=== PATIENT | female | born 2000 | race African-American/Black ===

== ENCOUNTER 2023-05-07 11:16 | Observation (INO) ==
--- NOTE | 2023-05-07 11:32 | Emergency Department Note ---
Impression & Plan Hypoglycemia, Diabetes type 1, uncontrolled, Intentional overdose, Hypokalemia ED Provider Note NAME: HENNY KEENAN AGE: 22 SEX: F : 2000 ARRIVES VIA: Ambulance INFORMANT: Patient ED PROVIDER(S): Binh Ann DO CHIEF COMPLAINT: OVERDOSE HPI: Patient is a 22-year-old female with a past medical history of diabetes, depression, hypothyroidism who presents to the ER following a suicide attempt. She notes this morning she received an email from her professor that she was not going to pass her class and consequently was not going to graduate. She notes around 1045 she took 40 units of Humalog subcu in order to kill herself. She did not check her sugars. She notes last night she took her 40 units of Lantus. She denies any headache or change in vision. No chest pain or shortness of breath. She did not eat prior to this. Denies any belly pain, nausea, vomiting, or diarrhea. No dysuria, urgency, or frequency. No other exacerbating remitting factors. ADDITIONAL HISTORY OBTAINED: Per HPI Chronic Medical/Social Conditions Affecting Care: Per HPI PAST MEDICAL HISTORY:See Below PAST SURGICAL HISTORY:See Below FAMILY HISTORY:See Below SOCIAL HISTORY:See Below HOME MEDICATIONS:See Below ALLERGIES:See Below VITALS:See Below PHYSICAL EXAMINATION: GENERAL: Sitting up in bed, alert, well appearing, well nourished, no distress, non-toxic EYE EXAM: normal conjunctiva. PERRL and EOM's grossly intact. OROPHARYNX: no exudate, no erythema, lips, buccal mucosa, and tongue normal and mucous membranes are moist NECK: supple, no nuchal rigidity, no adenopathy, non-tender LUNGS: Clear to auscultation. Normal chest wall mechanics HEART: no murmurs, S1 normal and S2 normal ABDOMEN: abdomen soft, non-tender, normo-active bowel sounds, no masses, no rebound or guarding. BACK: Back is symmetrical on inspection and there is no deformity, no midline tenderness, no CVA tenderness. SKIN: no rashes and no bruising UPPER EXTREMITIES: upper extremities are grossly normal. LOWER EXTREMITIES: No pitting edema. NEURO EXAM: Normal sensorium, cranial nerves II-XII grossly intact, normal speech, no gross weakness of arms, no gross weakness of legs. PSYCH: Admits to suicidal ideations with attempt to kill self MEDICAL DECISION MAKING: Patient is a 22-year-old female who presents the ER with past medical history of diabetes and hypothyroidism for intentional overdose on Humalog 40 units just prior to arrival. IV was established blood work is obtained. Labs show no significant leukocytosis or anemia. BMP with mild hypokalemia at 3.0. Glucose was 300 just prior to arrival and trended down to 50. She was given half an amp with D50 and placed on D10 normal saline. UA was contaminated. Patient was monitored closely and sugars trended back up. She did also eat. She was discussed with the hospitalist as well as [place] poison control and was admitted for close monitoring. Potassium was repleted orally as well. Patient remained on a one-to-one while in the ER. Consults/Care Managements Discussions: Per [facility] [place] Triage Nursing notes reviewed. Limited review of prior medical records performed Vital Signs: reviewed and remarkable for no significant abnormalities Differential diagnosis: Mood disorder, infection, hypoglycemia, electrolyte abnormalities, cardiac sources, intracerebral event, toxicologic, trauma, neurologic, as well as other pathologies. ER treatment provided: See below Diagnostics interpreted by me include EKG and cardiac monitoring as listed below: -Cardiac Monitoring: An order was placed for continuous cardiac monitoring. The monitor shows a rate of 80 with sinus rhythm. -ECG: Sinus rhythm rate 75 Normal axis No PVCs QTc 428 -Laboratory studies:Interpreted by me as stated above in MDM and shown below. Imaging studies: Xrays: As interpreted by me:none CTs show: none Procedures:none Critical Care: I have personally spent 31 minutes of critical care time in the direct management of this patient. This includes bedside care, interpretation of diagnostic studies, and testing, discussion with consultants, patient, and family members, and other required patient management activities. This 31 minutes is in excess of all separately billable procedures. Past Med/Surg History Medical History Diabetes type 1, uncontrolled Hypothyroidism Vitamin D deficiency Family History Denies family history of Diabetes Dyslipidemia Heart disease Kidney disease Myocardial infarction Hypertension Thyroid disorder Social History Smoking Status: Current some day smoker Tobacco Type: E-cigarettes / Vaping Do You Dip or Chew Tobacco: No; Hx Alcohol Use: Yes Alcohol Intake Frequency: Monthly or Less Hx Substance Use: No Preferred Language: Sri Lankan marital status: Single current occupational status: student Feels Safe at Home: Yes Allergies Allergies Allergy/AdvReac Type Severity Reaction Status Date / Time No Known Drug Allergies Allergy Verified 01/31/21 14:51 Home Meds Home Medications Medication Instructions Recorded Confirmed blood sugar diagnostic (Contour 12/22/20 01/31/21 Next Test Strips) cholecalciferol (vitamin D3) 0 ea PO DAILY 12/22/20 05/07/23 glucagon 3 mg/actuation nasal 0 mg intranasal ONCE 05/07/23 05/07/23 spray (Baqsimi) insulin glargine 100 unit/mL (3 40 unit subcut HS 05/07/23 05/07/23 mL) subcutaneous pen (Lantus Solostar U-100 Insulin) insulin lispro 100 unit/mL 20 unit subcut TID 05/07/23 05/07/23 subcutaneous pen (Humalog KwikPen (U-100) Insulin) Previous Rx's Medication Instructions Recorded levothyroxine 50 mcg tablet 50 mcg PO DAILY #30 tabs 12/22/20 pen needle, diabetic 32 gauge x #400 ea 12/22/20" (BD Ultra-Fine Olya Pen Needle) Results & Data (ED) Vital Signs Vital Signs - 24 hr 05/07/23 11:22 05/07/23 11:22 05/07/23 11:28 Pulse Rate 75 85 Respiratory Rate 12 Respiratory Depth Normal Blood Pressure 148/74 H Blood Pressure Mean 98 Pulse Oximetry 98 98 Oxygen Delivery Method Room Air Room Air Oxygen Flow Rate 0 Sepsis Recent Fever Within 48 Hours No Sepsis New/Unexplained Change in Mental Status N/A Sepsis Action Taken by Nursing No Action Required Laboratory Data 05/07/23 12:34 05/07/23 11:45 Lab Results 05/07/23 05/07/23 05/07/23 Range/Units 11:24 11:45 11:56 WBC (4.8-10.8) K/ul RBC (4.20-5.40) M/uL Hgb (12.0-16.0) g/dl Hct (37.0-47.0) % MCV (80.0-100.0) fL MCH (25.0-34.0) pg MCHC (32.0-36.0) g/dL RDW Std Deviation (36.4-46.3) fL RDW Coeff of Mirta (11.5-14.5) % Plt Count (130-400) K/uL MPV (9.4-12.4) fL Immature Gran % (Auto) % Neut % (Auto) % Lymph % (Auto) % [place] % (Auto) % Eos % (Auto) % Baso % (Auto) % Neut # (Auto) (1.40-6.50) K/uL Lymph # (Auto) (1.20-3.40) K/uL [place] # (Auto) (0.11-0.59) K/uL Eos # (Auto) (0.00-0.50) K/uL Baso # (Auto) (0.00-0.20) K/uL Immature Gran # (Auto) (0.01-0.20) K/uL Sodium 134 L (136-145) mmol/L Potassium 3.1 L (3.5-5.1) mmol/L Chloride 104 (98-107) mmol/L Carbon Dioxide 22 (21-32) mmol/L Anion Gap 8 (3-11) BUN 8 (6-23) mg/dl Creatinine 0.63 (0.6-1.2) mg/dl Est Cr Clr Drug Dosing 165.3 ml/min Est GFR ( Amer) 148.6 ml/min Est GFR (Non-Af Amer) 128.2 ml/min BUN/Creatinine Ratio 12.7 (10-20) Glucose 156 H (70-99(Fasting)) mg/dl POC Glucose 207 H 104 H (70-99) mg/dl Calcium 9.3 (8.6-10.3) mg/dl Magnesium 1.6 L (1.7-2.4) mg/dl Total Bilirubin 0.5 (0.2-1.0) mg/dl AST 11 L (13-39) U/L ALT 10 (7-52) U/L Alkaline Phosphatase 86 (34-104) U/L Total Protein 7.8 (6.0-8.3) gm/dl Albumin 4.3 (3.4-5.0) gm/dl Globulin 3.5 (2.5-4.0) gm/dl Albumin/Globulin Ratio 1.2 (0.9-2) TSH 1.709 (0.300-4.500) uIu/ml Salicylates < 3.0 L (3.0-30) mg/dl Acetaminophen < 3 L (10-30) ug/ml Ethyl Alcohol mg/dL < 10.0 (<10.0) mg/dl 05/07/23 05/07/23 05/07/23 Range/Units 12:18 12:34 12:47 WBC 8.41 (4.8-10.8) K/ul RBC 4.20 (4.20-5.40) M/uL Hgb 13.0 (12.0-16.0) g/dl Hct 37.4 (37.0-47.0) % MCV 89.0 (80.0-100.0) fL MCH 31.0 (25.0-34.0) pg MCHC 34.8 (32.0-36.0) g/dL RDW Std Deviation 39.0 (36.4-46.3) fL RDW Coeff of Mirta 12.0 (11.5-14.5) % Plt Count 407 H (130-400) K/uL MPV 10.1 (9.4-12.4) fL Immature Gran % (Auto) 0.2 % Neut % (Auto) 74.9 % Lymph % (Auto) 19.7 % [place] % (Auto) 4.5 % Eos % (Auto) 0.2 % Baso % (Auto) 0.5 % Neut # (Auto) 6.29 (1.40-6.50) K/uL Lymph # (Auto) 1.66 (1.20-3.40) K/uL [place] # (Auto) 0.38 (0.11-0.59) K/uL Eos # (Auto) 0.02 (0.00-0.50) K/uL Baso # (Auto) 0.04 (0.00-0.20) K/uL Immature Gran # (Auto) 0.02 (0.01-0.20) K/uL Sodium (136-145) mmol/L Potassium (3.5-5.1) mmol/L Chloride (98-107) mmol/L Carbon Dioxide (21-32) mmol/L Anion Gap (3-11) BUN (6-23) mg/dl Creatinine (0.6-1.2) mg/dl Est Cr Clr Drug Dosing ml/min Est GFR ( Amer) ml/min Est GFR (Non-Af Amer) ml/min BUN/Creatinine Ratio (10-20) Glucose (70-99(Fasting)) mg/dl POC Glucose 67 L* 127 H (70-99) mg/dl Calcium (8.6-10.3) mg/dl Magnesium (1.7-2.4) mg/dl Total Bilirubin (0.2-1.0) mg/dl AST (13-39) U/L ALT (7-52) U/L Alkaline Phosphatase (34-104) U/L Total Protein (6.0-8.3) gm/dl Albumin (3.4-5.0) gm/dl Globulin (2.5-4.0) gm/dl Albumin/Globulin Ratio (0.9-2) TSH (0.300-4.500) uIu/ml Salicylates (3.0-30) mg/dl Acetaminophen (10-30) ug/ml Ethyl Alcohol mg/dL (<10.0) mg/dl Administered Medications Dextrose (D10w) 1,000 mls @ 80 mls/hr IV .[id number] ONE Stop: 05/08/23 00:59 Last Infusion: 05/07/23 13:26 Dose: 80 mls/hr Documented By: Admin: 05/07/23 12:38 Dose: 150 mls/hr Documented By: JUANY Discontinued Medications Acetaminophen (Acetaminophen 500 Mg Tab) 1,000 mg PO NOW STA Stop: 05/07/23 13:24 Last Admin: 05/07/23 13:33 Dose: 1,000 mg Documented By: MARYCARMEN Dextrose (Dextrose 50% 50 Ml Syringe) 25 ml IV NOW ONE Stop: 05/07/23 12:25 Last Admin: 05/07/23 12:30 Dose: 25 ml Documented By: JUANY Parenteral Electrolytes (Plasma-Lyte A Ph 7.4) 1,000 mls @ 999 mls/hr IV .Q1H1M ONE Stop: 05/07/23 12:29 Last Infusion: 05/07/23 12:38 Dose: Infused Documented By: Admin: 05/07/23 11:53 Dose: 999 mls/hr Documented By: JUANY Potassium Chloride (Potassium Chloride Crtab 20 Meq Tabcr) 40 meq PO NOW STA Stop: 05/07/23 12:34 Last Admin: 05/07/23 12:44 Dose: 40 meq Documented By: JUANY Discharge Plan Visit Data Chief Complaint: Overdose (Intentional) Stated Complaint: OVERDOSE ED Provider: Binh Ann Discharge Problem: Hypoglycemia, Diabetes type 1, uncontrolled, Intentional overdose, Hypokalemia Patient Disposition: Admitted As Inpatient Discharge Instructions Interventions: ED Discharge Assessment Last Done: 05/07/23 15:49 Discharge Problem: Diabetes type 1, uncontrolled Qualifiers: Glycemic state: with hypoglycemia Coma presence: unspecified whether coma present Qualified Code(s): E10.649 - Type 1 diabetes mellitus with hypoglycemia without coma Intentional overdose Qualifiers: Encounter type: initial encounter Qualified Code(s): T50.902A - Poisoning by unspecified drugs, medicaments and biological substances, intentional self-harm, initial encounter
[2023-05-07] MEDS: PLASMA-LYTE A 1,000 ML IV ONE (11:53)
[2023-05-07 12:19] LABS: Albumin Level 4.3 gm/dl (3.4-5.0); Bilirubin,Total 0.5 mg/dl (0.2-1.0); Calcium 9.3 mg/dl (8.6-10.3); Potassium 3.1 mmol/L (3.5-5.1)
[2023-05-07 12:25] LABS: Albumin Globulin Ratio 1.2 (0.9-2); BUN Creatinine Ratio 12.7 (10-20); Creatinine Clr Calc Pharmacy 165.3 ml/min; Est GFR (African American) 148.6 ml/min; Est GFR (Non-African American) 128.2 ml/min; Globulin 3.5 gm/dl (2.5-4.0); Total Protein 7.8 gm/dl (6.0-8.3)
[2023-05-07] MEDS: DEXTROSE 50% 50 ML SYRINGE IV ONE (12:30)
[2023-05-07 12:36] LABS: Acetaminophen < 3 ug/ml (10-30); Salicylate < 3.0 mg/dl (3.0-30)
[2023-05-07] MEDS: DEXTROSE 10% 1,000 ML IV ONE (12:38)
[2023-05-07] MEDS: POTASSIUM CHLORIDE CRTAB 20 MEQ TABCR PO STA (12:44)
[2023-05-07 12:52] LABS: Thyroid Stimulating Hormone 1.709 uIu/ml (0.300-4.500)
[2023-05-07] MEDS ORDERED: PHARMACY GLYCEMIC MGMT CONSULT PRN (13:09)
[2023-05-07] MEDS ORDERED: GLUCOSE 10 TAB/TUBE PO PRN (13:11)
[2023-05-07] MEDS ORDERED: GLUCAGON FOR INJ 1 MG VIAL SQ PRN (13:11)
[2023-05-07] MEDS ORDERED: CARBOHYDRATES FOR HYPOGLYCEMIA PO PRN (13:11)
[2023-05-07] MEDS ORDERED: GLUCOSE 40% GEL 15 GM TUBE PO PRN (13:11)
[2023-05-07] MEDS ORDERED: DEXTROSE 50% 50 ML SYRINGE IV PRN (13:11)
[2023-05-07 13:22] LABS: Basophils # (auto) 0.04 K/uL (0.00-0.20); Basophils % (auto) 0.5 %; Eosinophils # (auto) 0.02 K/uL (0.00-0.50); Eosinophils % (auto) 0.2 %; Hematocrit (blood only) 37.4 % (37.0-47.0); Immature Granulocytes # (auto) 0.02 K/uL (0.01-0.20); Immature Granulocytes % (auto) 0.2 %; Lymphocytes # (auto) 1.66 K/uL (1.20-3.40); Lymphocytes % (auto) 19.7 %; Mean Corpuscular Hgb Conc 34.8 g/dL (32.0-36.0); Mean Platelet Volume 10.1 fL (9.4-12.4); Monocytes # (auto) 0.38 K/uL (0.11-0.59); Monocytes % (auto) 4.5 %; Neutrophils # (auto) 6.29 K/uL (1.40-6.50); Neutrophils % (auto) 74.9 %; Platelet Count 407 K/uL (130-400); White Blood Count 8.41 K/ul (4.8-10.8)
[2023-05-07] MEDS: ACETAMINOPHEN 500 MG TAB PO STA (13:33)
--- NOTE | 2023-05-07 13:36 | History & Physical Report ---
Date of Service May 07, 2023 Assessment & Plan (1) Intentional overdose: Plan: -Admit to med/tele -Currently stable and non-toxic appearing -Presented to the ED after intentionally taking 40 units of NovoLog this am around 1045 -Patient tried to take her own life after finding out this am that she will be failing one of her classes this -Called crisis hotline shortly after overdosing -Last had her 40 units HS lantus last night, denies taking any long acting insulin this am -Was noted to have a glucose of 67 after ED arrival, was started on a D10W drip at 125 mL/hr prior to admission -ED staff spoke with the poison control center, recommends continued monitoring overnight. >Will need to be monitored for 6 hours after D10W drip has been stopped prior to being medically cleared -Repeat BSG on admission is 143 -Will decrease the rate of the D10W drip to 80 mL/hr for now -Monitor BSG q2h with hypoglycemia protocol in place -Pharmacy glycemic consult paced for management -Patient currently denies suicidal or homicidal ideations, continue suicide precautions until evaluated by Psychiatry -Continue 1:1 observation -Psychiatry consult placed -DMI diet -OOB for DVT PPX -AM CBC, BMP, mag (2) Diabetes type 1, uncontrolled: Plan: -Continue D10W drip for now -Will eventually DC D10W drip, will need to monitor BSG q1h after until she is consistently stable -Normally takes 40 units HS lantus and a carb ratio of 1:5 -Last dose of lantus was reported to be last night with 40 units -Follow pharmacy glycmeic consult (3) Right wrist pain: Plan: -Fall 2 nights ago while out drinking with friends -Does not remember the fall but states that her friends did, she did not hit her head or lose consciousness -Now with right wrist/hand pain -Will obtain xrays of the right wrist/hand on admission -Continue tylenol for pain (4) Hypokalemia: Plan: -Noted to be 3.1 on arrival -Likely due to the increased dose of NovoLog this am with intentional overdose -Did have flattened T-waves on arrival, has been otherwise stable -Was given 40 meq PO KCL and 1L LR bolus on arrival -Will obtain mag level -Continue to monitor on tele -Will repeat potassium level this afternoon to ensure it is stable (5) Hypothyroidism: Plan: -Continue levothyroxine Plan The patient was discussed with Dr. Weems at the time of the admission History of Present Illness Chief Complaint: Intentional overdose Primary Care Provider: RYLEY Frias is a 22 year old female with a PMH significant for DMI, hypothyroidism, anxiety, and depression who presented to the [facility] via EMS on 05/07/23 after intentionally overdosing on her short-acting insulin. The patient is a current [employer] student. She states that she was told by one of her professors this am that she is failing one her her classes and there is nothing that she will be able to do at this time to pass. Because of this she started to experience increased anxiety with thoughts that life was not worth living anymore. Because of this she took 40 units of her NovoLog at approximately 1045 this morning. Shortly after she call the Crisis hotline who then contacted EMS. She currently is without complaints. When asked if she is still having thoughts of harming herself she paused and then said, "not at this time". She has not had thoughts of harming others. She states that she has had thoughts of harming herself in the past when she has had severe anxiety/depression but never acted on them or had a previous plan. When asked, she drinks alcohol approximately 3-4 times a week when she goes out with friends. Her last drink was early this am around 0100. She denies a previous hx of withdrawal if she stops drinking. when asked about tobacco/vaping/recreational drugs, she states that she will occasionally vape/smoke tobacco when out with friends. She does not believe that she has had any other recreational drugs recently. When she went out with friends 2 nights ago she was told she fell while trying to run. Since then her right wrist has been sore. She took some ibuprofen last night which improved the pain but did not resolve it. Her father is driving up from [place] to see her. She has had episodes in the past when she had thoughts of harming herself, but this was the first time she ever acted on the thoughts. Please refer to Dr. Weems' attestation for any changes to the treatment plan Allergies Allergy/AdvReac Type Severity Reaction Status Date / Time No Known Drug Allergies Allergy Verified 01/31/21 14:51 Home Medications Medication Instructions Recorded Confirmed Type blood sugar diagnostic (Contour 12/22/20 01/31/21 History Next Test Strips) cholecalciferol (vitamin D3) 1 ea PO DAILY 12/22/20 01/30/21 History levothyroxine 50 mcg tablet 50 mcg PO DAILY #30 tabs 12/22/20 01/31/21 Rx pen needle, diabetic 32 gauge x #400 ea 12/22/20 01/31/21 Rx 5/32" (BD Ultra-Fine Olya Pen Needle) glucagon 3 mg/actuation nasal 3 mg intranasal ONCE #2 ea 03/03/21 03/03/21 Rx spray (Baqsimi) insulin glargine 100 unit/mL (3 40 unit (0.4 mL) subcut QPM #45 mL 05/09/22 Rx mL) subcutaneous pen (Lantus Solostar U-100 Insulin) insulin lispro 100 unit/mL 20 unit (0.2 mL) subcut TID #60 mL 05/09/22 Rx subcutaneous pen Past Med/Surg History Medical History Diabetes type 1, uncontrolled Hypothyroidism Vitamin D deficiency Family History Denies family history of Diabetes Dyslipidemia Heart disease Kidney disease Myocardial infarction Hypertension Thyroid disorder Social History Smoking Status: Current some day smoker Tobacco Type: E-cigarettes / Vaping Do You Dip or Chew Tobacco: No; Hx Alcohol Use: Yes Alcohol Intake Frequency: Monthly or Less Hx Substance Use: No Preferred Language: Greenlandic marital status: Single current occupational status: student Feels Safe at Home: Yes Physical Exam Physical Exam: Physical Exam: General: In no acute distress, stated age, well-nourished, good hygiene HEENT: Normocephalic, atraumatic, no scleral icterus, pupils around round, symmetrical, and reactive to light, moist mucus membranes, trachea midline, no thyromegaly Chest/Pulm: No respiratory distress, symmetrical chest expansion, clear breath sounds throughout Cardiac: RRR, no murmurs noted Abdomen: Negative for ascites and bruising, normoactive bowel sounds, soft, non-tender to palpation throughout Musculoskeletal: Right wrist is without obvious trauma on inspection, patient with tenderness with palpation of the right wrist without step off or crepitus, able to flex and extend right wrist with pain Extremities: Radial, dorsalis pedis, and posterior tibial pulses are intact and symmetrical, no edema noted in the BL LE's Skin: Warm, dry, no rashes , lesions, or scars noted Neuro: Alert and oriented to person, place, month, year, and president, no focal defects, no tremors noted Psych: No acute distress, calm and cooperative during the exam Results & Data Results & Data Vital Signs (Past 12 Hours) Vital Signs Pulse Resp BP Pulse Ox O2 Del Method O2 Flow Rate 05/07/23 11:28 85 05/07/23 11:22 98 Room Air 0 05/07/23 11:22 75 12 148/74 H 98 Room Air Laboratory Results Abnormal lab results 05/07/23 05/07/23 05/07/23 Range/Units 11:24 11:45 11:56 Plt Count (130-400) K/uL Sodium 134 L (136-145) mmol/L Potassium 3.1 L (3.5-5.1) mmol/L Glucose 156 H (70-99(Fasting)) mg/dl POC Glucose 207 H 104 H (70-99) mg/dl AST 11 L (13-39) U/L Salicylates < 3.0 L (3.0-30) mg/dl Acetaminophen < 3 L (10-30) ug/ml 05/07/23 05/07/23 05/07/23 Range/Units 12:18 12:34 12:47 Plt Count 407 H (130-400) K/uL Sodium (136-145) mmol/L Potassium (3.5-5.1) mmol/L Glucose (70-99(Fasting)) mg/dl POC Glucose 67 L* 127 H (70-99) mg/dl AST (13-39) U/L Salicylates (3.0-30) mg/dl Acetaminophen (10-30) ug/ml 05/07/23 Range/Units 13:22 Plt Count (130-400) K/uL Sodium (136-145) mmol/L Potassium (3.5-5.1) mmol/L Glucose (70-99(Fasting)) mg/dl POC Glucose 143 H (70-99) mg/dl AST (13-39) U/L Salicylates (3.0-30) mg/dl Acetaminophen (10-30) ug/ml ECG Additional Comments: Normal sinus rhythm with sinus arrhythmia Nonspecific T wave abnormality Abnormal ECG No previous ECGs available Code Status & VTE Plan Code Status Full code VTE Prophylaxis Plan VTE Prophylaxis will be ordered: Yes Supervising Physician Co-Signing Physician Notes I have personally seen, evaluated and examined the patient. I have also personally discussed the management of the patient with the resident physician/CAILIN and I agree with the exam findings documented in the history and physical examination and the documented assessment and plan unless otherwise stated below. Brief Exam: In general very pleasant 22-year-old black female who is alert and oriented x 3 at time my examination. She is somewhat remorseful for her actions earlier today. 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 She has no specific complaints. HEENT: Normocephalic atraumatic. Heart: Regular rate and rhythm no murmur or ectopy or rub. Lungs: Clear bilaterally. Abdomen: Soft nontender positive bowel sounds. Extremities intact she has got discomfort in her right wrist and the dorsum of her right hand there is no visible injury however we will x-ray this. Neurologically: She is alert and oriented x 3 with no focal deficit. Assessment/plan: As described above. Please refer to orders for further planning. PG Care Time/CCT Total # of Minutes Spent Total Time Spent with Patient: Total time spent is greater than 50% in coordination of care (as documented) at patient's floor/unit and/or counseling patient: [place] [address] INT INP/OBS CARE 3/75MIN Patient Type Established Medical Decision Making High Complexity Diagnoses Intentional overdose T50.902A Diabetes type 1, uncontrolled E10.65 Right wrist pain M25.531 Hypokalemia E87.6 Hypothyroidism E03.9
--- NOTE | 2023-05-07 14:21 | XRay Report ---
XR hand RT min 3V routine, XR wrist RT min 3V routine CLINICAL HISTORY: fall, right hand pain TECHNIQUE: 3 views of the right hand and 3 views of the right wrist were obtained. Comparison: None available at the time of this dictation. FINDINGS: There is no evidence of an acute fracture. Joint spaces are well-preserved. No soft tissue abnormalit y is seen. IMPRESSION: No evidence of acute bony injury. ACT 112: Negative or not required by law. Electronically signed by: Antoni Carter M.D. 05/07/2023 2:19 PM
[2023-05-07 14:28] LABS: Appearance Urine Cloudy (Clear); Bacteria Urine Automated 2+ (Negative); Bilirubin Urine Negative (Negative); Blood Urine Trace (Negative); Color Urine Yellow; Epithelial Cell Urine Auto >30 /lpf (0-5); Glucose Urine UA 2+ (Negative); Ketones Urine Trace (Negative); Leukocyte Esterase Urine 2+ (Negative); Nitrite Urine Negative (Negative); Protein Urine Negative (Negative); RBC Urine Automated 0-4 /hpf (0-4); Urobilinogen Urine Negative (Negative); WBC Urine Automated >30 /hpf (0-5)
[2023-05-07 14:39] LABS: Magnesium 1.6 mg/dl (1.7-2.4)
[2023-05-07 14:58] LABS: Amphetamines+Metham, Urine Neg (Neg); Barbiturates, Urine Neg (Neg); Benzodiazepine, Urine Neg (Neg); Cocaine, Urine Neg (Neg); MDMA (Ecstacy), Urine Neg (Neg); Marijuana, Urine Pos (Neg); Methadone, Urine Neg (Neg); Opiate, Urine Neg (Neg); Phencyclidine, Urine Neg (Neg)
--- NOTE | 2023-05-07 15:00 | Electrocardiogram Report ---
Test Reason : Blood Pressure : / mmHG Vent. Rate : 075 BPM Atrial Rate : 075 BPM P-R Int : 180 ms QRS Dur : 078 ms QT Int : 384 ms P-R-T Axes : 058 060 015 degrees QTc Int : 428 ms Normal sinus rhythm with sinus arrhythmia Nonspecific T wave abnormality Abnormal ECG No previous ECGs available Confirmed by Yogi Prather ([id number]) on 05/07/2023 3:00:18 PM Referred By: REFERRED SELF Confirmed By:Reymundo Prather
--- NOTE | 2023-05-07 15:11 | Pharmacy Report ---
Pharmacy Glycemic Short Note 2 - Date of Service May 07, 2023 - Glycemic Short BSG Results (Last 24 hours): 05/07/23 05/07/23 05/07/23 11:24 11:45 11:56 Glucose 156 H POC Glucose 207 H 104 H 05/07/23 05/07/23 05/07/23 12:18 12:47 13:22 Glucose POC Glucose 67 L* 127 H 143 H 05/07/23 05/07/23 14:27 15:01 Glucose POC Glucose 86 49 L* OUTPATIENT ANTIDIABETIC REGIMEN: * Lantus 40 units SC HS * Humalog 20 units SC AC * HbA1c pending ASSESSMENT: * 22 yo F admitted on 05/07/23 secondary to intentional overdose with insulin. Pharmacy has been consulted to assist with inpatient glycemic management. Patient is a Type 1 diabetic as an outpatient. Please refer to outpatient regimen and most recent HbA1c above. * Patient took 40 units of basal last evening. According to H&P, patient self- administered 40 units of Humalog at 1045 this AM in a suicide attempt. * BSG initially looks okay at 207 mg/dL. One hour later, her BSG dropped to 67 in the ED and a D10W infusion was started at 125 mL/hr. This was reduced to 80 mL/hr around 1300 when BSG was 143 mg/dL. * Recommended discontinuation of D10W infusion as enough half lives had passed to not be concerned with amount of insulin in system. However, after stopping D10W, BSGs trended down to 86 mg/dL then 47 mg/dL. Will continue with D10W at 80 mL/hr for now and check BSG every hour. * No bolus insulin will be ordered at this time. Depending on BSG at dinner time, may need to add bolus insulin. * Basal regimen will be reduced 25% from home and started this evening as patient is type 1 and will require some basal. PLAN FOR INPATIENT GLYCEMIC CONTROL: * Basal insulin * Lantus 30 units SC HS * Bolus insulin * NovoLog per scale ACHS or Q6hrs while NPO * Goal Range: Low 120 mg/dL - High 160 mg/dL * Correction Factor: 35 mg/dL/unit * Nutritional / Prandial insulin per carb ratio of 1 unit per 12 grams CHO consumed
[2023-05-07] MEDS ORDERED: INSULIN ASPART PER UNIT CHARGE SC SCH (16:30)
[2023-05-07] MEDS: ACETAMINOPHEN 325 MG TAB PO SCH (18:53)
[2023-05-07] MEDS: LANTUS PER UNIT CHARGE SC SCH (19:45)
[2023-05-07] MEDS: INSULIN ASPART PER UNIT CHARGE SC SCH (19:45)
[2023-05-07] MEDS: INSULIN ASPART PER UNIT CHARGE ONE (19:46)
[2023-05-07] MEDS ORDERED: LANTUS PER UNIT CHARGE SC SCH ×2 (21:00)
[2023-05-08 07:33] LABS: Basophils # (auto) 0.05 K/uL (0.00-0.20); Basophils % (auto) 0.7 %; Eosinophils # (auto) 0.07 K/uL (0.00-0.50); Hematocrit (blood only) 37.3 % (37.0-47.0); Hemoglobin 12.6 g/dl (12.0-16.0); Immature Granulocytes # (auto) 0.02 K/uL (0.01-0.20); Immature Granulocytes % (auto) 0.3 %; Lymphocytes # (auto) 2.34 K/uL (1.20-3.40); Lymphocytes % (auto) 33.2 %; Mean Corpuscular Hemoglobin 30.7 pg (25.0-34.0); Mean Corpuscular Hgb Conc 33.8 g/dL (32.0-36.0); Mean Platelet Volume 10.1 fL (9.4-12.4); Monocytes # (auto) 0.49 K/uL (0.11-0.59); Neutrophils # (auto) 4.08 K/uL (1.40-6.50); Neutrophils % (auto) 57.8 %; Platelet Count 363 K/uL (130-400); RDW Coefficient of Variation 12.4 % (11.5-14.5); RDW Standard Deviation 40.9 fL (36.4-46.3); White Blood Count 7.05 K/ul (4.8-10.8)
[2023-05-08 08:08] LABS: Estimated Average Glucose 209 mg/dl; Hemoglobin A1C 8.9 % (4.5-5.6)
[2023-05-08 08:47] LABS: Albumin Level 3.6 gm/dl (3.4-5.0); Anion Gap 7 (3-11); Bilirubin,Total 0.5 mg/dl (0.2-1.0); Calcium 8.7 mg/dl (8.6-10.3); Carbon Dioxide 24 mmol/L (21-32); Chloride 102 mmol/L (98-107); Magnesium 1.7 mg/dl (1.7-2.4); Potassium 3.8 mmol/L (3.5-5.1); Sodium 133 mmol/L (136-145)
[2023-05-08 08:58] LABS: Alanine Aminotransferase 6 U/L (7-52); Albumin Globulin Ratio 1.2 (0.9-2); Alkaline Phosphatase 66 U/L (34-104); Aspartate Aminotransferase 9 U/L (13-39); BUN Creatinine Ratio 12.3 (10-20); Blood Urea Nitrogen 7 mg/dl (6-23); Creatinine Clr Calc Pharmacy 182.7 ml/min; Est GFR (African American) > 150.0 ml/min; Est GFR (Non-African American) 132.5 ml/min; Glucose 328 mg/dl (70-99(Fasting)); Total Protein 6.6 gm/dl (6.0-8.3)
--- NOTE | 2023-05-08 10:27 | Hospitalist Progress Note ---
Date of Service May 08, 2023 Assessment & Plan (1) Intentional overdose: Plan: Per psychiatry - continue 1:1, cannot leave AMA Will transfer to psychiatry [facility] once medically cleared - she appears medically stable for discharge at this time. Per psychiatric liason BSG needs to be less than 250 for at least a day (2) Diabetes type 1, uncontrolled: Plan: Appreciate ongoing pharmacy glycemic management (3) Right wrist pain: Plan: Negative XR (4) Hypokalemia: Plan: Continue to replace as needed (5) Hypothyroidism: Plan: TSH WNL Continue levothyroxine Plan VTE Prophylaxis - low risk Diet - T1DM Disposition - medically stable for discharge at this time Admission and Anticipated Discharge Date Admission Date: May 07, 2023 Subjective Feels back to her baseline. No current symptoms of hypo-hyperglycemia. Glucose 300+ following D10W drip which has now been discontinued. Review of Systems Review of Systems: All systems reviewed & are unremarkable except as noted in HPI & below Physical Exam Constitutional: WD/WN, vitals as above Respiratory: normal respiratory effort, lungs clear to auscultation Cardiovascular: RRR, no murmur, no edema Gastrointestinal (Abdomen): normal bowel sounds, soft, nontender, no hepatosplenomegaly Skin: no rashes, warm and dry Neurologic: moves all extremities and awake; not confused Psychiatric: A+Ox3, euthymic affect Results & Data Results & Data Vital Signs (Past 12 Hours) Vital Signs Pulse Resp BP Pulse Ox O2 Del Method 05/08/23 07:15 63 05/07/23 22:56 65 05/07/23 22:32 75 15 114/60 99 Room Air PG Care Time/CCT Total # of Minutes Spent Total Time Spent with Patient: Total time spent is greater than 50% in coordination of care (as documented) at patient's floor/unit and/or counseling patient: Coding Level of Care Code 94494 SUB INP/OBS CARE 2/35MIN Diagnoses Intentional overdose T50.902A Encounter type: initial encounter Diabetes type 1, uncontrolled E10.649 Coma presence: unspecified whether coma present Glycemic state: with hypoglycemia Right wrist pain M25.531 Hypokalemia E87.6 Hypothyroidism E03.9 (1) Intentional overdose Encounter type: initial encounter Qualified Code(s): T50.902A - Poisoning by unspecified drugs, medicaments and biological substances, intentional self-harm, initial encounter (2) Diabetes type 1, uncontrolled Coma presence: unspecified whether coma present Glycemic state: with hypoglycemia Qualified Code(s): E10.649 - Type 1 diabetes mellitus with hypoglycemia without coma
--- NOTE | 2023-05-08 14:03 | Pharmacy Report ---
Pharmacy Glycemic Short Note 2 - Date of Service May 08, 2023 - Glycemic Short BSG Results (Last 24 hours): 05/07/23 05/07/23 05/07/23 14:27 15:01 16:02 Glucose POC Glucose 86 49 L* 99 05/07/23 05/07/23 05/07/23 16:53 17:23 18:13 Glucose POC Glucose 243 H 305 H* 326 H* 05/07/23 05/07/23 05/07/23 19:19 20:16 20:54 Glucose POC Glucose 339 H* 319 H* 312 H* 05/07/23 05/08/23 05/08/23 23:18 01:38 03:45 Glucose POC Glucose 246 H 197 H 247 H 05/08/23 05/08/23 05/08/23 06:21 07:04 08:11 Glucose 328 H* POC Glucose 298 H 303 H* 05/08/23 12:04 Glucose POC Glucose 381 H* OUTPATIENT ANTIDIABETIC REGIMEN: * Lantus 40 units SC HS * Humalog 20 units SC AC * HbA1c: 8.9% (05/08/23) ASSESSMENT: 05/07: * Received 30 units basal + 8 units bolus last night. BSGs trended up to 312 mg/dL. * Fasting BSG was 298 mg/dL this AM. Will increase basal to home dose today. * Lunchtime BSG up to 381 mg/dL. Tightened correction and added carb ratio at breakfast. Will tighten both even further. 05/06: * 22 yo F admitted on 05/07/23 secondary to intentional overdose with insulin. Pharmacy has been consulted to assist with inpatient glycemic management. Patient is a Type 1 diabetic as an outpatient. Please refer to outpatient regimen and most recent HbA1c above. * Patient took 40 units of basal last evening. According to H&P, patient self- administered 40 units of Humalog at 1045 this AM in a suicide attempt. * BSG initially looks okay at 207 mg/dL. One hour later, her BSG dropped to 67 in the ED and a D10W infusion was started at 125 mL/hr. This was reduced to 80 mL/hr around 1300 when BSG was 143 mg/dL. * Recommended discontinuation of D10W infusion as enough half lives had passed to not be concerned with amount of insulin in system. However, after stopping D10W, BSGs trended down to 86 mg/dL then 47 mg/dL. Will continue with D10W at 80 mL/hr for now and check BSG every hour. * No bolus insulin will be ordered at this time. Depending on BSG at dinner time, may need to add bolus insulin. * Basal regimen will be reduced 25% from home and started this evening as patient is type 1 and will require some basal. PLAN FOR INPATIENT GLYCEMIC CONTROL: * Basal insulin * Lantus 40 units SC HS * Bolus insulin * NovoLog per scale ACHS or Q6hrs while NPO * Goal Range: Low 120 mg/dL - High 160 mg/dL * Correction Factor: 30 mg/dL/unit * Nutritional / Prandial insulin per carb ratio of 1 unit per 10 grams CHO consumed
--- NOTE | 2023-05-08 15:13 | Psychiatric Consultation ---
Date of Consultation May 08, 2023 Impression / Recommendations Impression 22 yo female presenting s/p 2nd OD attempt, this by insulin with significant ongoing dysregulation of glucose. (1) Intentional overdose: Encounter type: initial encounter Qualified Code(s): T50.902A - Poisoning by unspecified drugs, medicaments and biological substances, intentional self-harm, initial encounter (2) Diabetes type 1, uncontrolled: Coma presence: unspecified whether coma present Glycemic state: with hypoglycemia Qualified Code(s): E10.649 - Type 1 diabetes mellitus with hypoglycemia without coma Plan patient should remain on 1-on-1 pending placement on an inpatient psychiatric unit, she is currently stating she would be 201. She should not be allowed to leave AMA as at this point in her treatment a 302 warrant would be obtained. defer any med recs to inpatient care. CPT Code Overall, I spent a total of 56 minutes with this case, including review of chart, direct evaluation of the patient, counseling the patient, coordination with nursing, and documentation. Psych History Identifying Data 22 yo female, [employer] student from [employer], admit medically yesterday midday following an insulin OD but remains housed in ED for tele/monitoring. Consult is by hospitalist service for level of care recommendations. Chief Complaint remains on , "If I have to I'll go" referring to inpatient psychiatric rec. History of Present Illness Reviewed and confirmed history as per liaison: Patient was seen for initial consult, father, sister and 1:1 present in room. Patient is currently in ED waiting for a medical bed. Patient alert, pleasant and cooperative. 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 She states "I feel disappointed in myself" It became overwhelming and she then took the extra insulin. She reports this was impulsive with no prior plan. She does report that she has had depression since middle school and had taken her thyroid medication in attempt to end her life. She states "It didn't work." She did not seek treatment for this and states her parents were unaware. She denies any other attempts. No history of inpatient treatment and is on no medications for depression/anxiety. She has had several sessions with [facility] this year and felt they have been helpful. Denies SIB. Denies any issues with D&A. She does report fleeting thoughts of not wanting to be alive several times a week. She scored a #16 on PHQ-9, answering yes to question #9. She denies any access to guns. Physically she states she is feeling much better today. IV is to hep lock, ambulating to restroom, eating meals. Cooperative with staff in ED and surprisingly bright in interactions. She confirms that she is not taking any psychiatric medications. She asked appropriate questions about 201 vs. 302 commitments and discussed what personal items can/can't have on unit, etc. She confirms family is supportive of inpatient care. Allergies Allergy/AdvReac Type Severity Reaction Status Date / Time No Known Drug Allergies Allergy Verified 01/31/21 14:51 Home Medications Medication Instructions Recorded Confirmed Type blood sugar diagnostic (Contour 12/22/20 01/31/21 History Next Test Strips) cholecalciferol (vitamin D3) 0 ea PO DAILY 12/22/20 05/07/23 History levothyroxine 50 mcg tablet 50 mcg PO DAILY #30 tabs 12/22/20 05/07/23 Rx pen needle, diabetic 32 gauge x #400 ea 12/22/20 05/07/23 Rx 5/32" (BD Ultra-Fine Olya Pen Needle) glucagon 3 mg/actuation nasal 0 mg intranasal ONCE 05/07/23 05/07/23 History spray (Baqsimi) insulin glargine 100 unit/mL (3 40 unit subcut HS 05/07/23 05/07/23 History mL) subcutaneous pen (Lantus Solostar U-100 Insulin) insulin lispro 100 unit/mL 20 unit subcut TID 05/07/23 05/07/23 History subcutaneous pen (Humalog KwikPen (U-100) Insulin) Patient History Medical History Diabetes type 1, uncontrolled Vitamin D deficiency Hypothyroidism Family History Denies family history of Diabetes Dyslipidemia Heart disease Kidney disease Myocardial infarction Hypertension Thyroid disorder Social History Smoking Status: Current some day smoker Tobacco Type: E-cigarettes / Vaping Do You Dip or Chew Tobacco: No; Hx Alcohol Use: Yes Alcohol Intake Frequency: Monthly or Less Hx Substance Use: No Preferred Language: Togolese marital status: Single current occupational status: student Feels Safe at Home: Yes Physical Exam Psychiatric: Orientation: alert Apperance: appropriately groomed Eye Contact: good eye contact Motor Behavior: no abnormal motor movements Speech: normal rate/rhythm/volume of speech Affect: euthymic affect Mood: + depressed mood Thought Process: goal directed thought process Thought Content: reality based without delusions Suicidal Thoughts: denies suicidal thoughts (in ED) Homicidal Thoughts: denies homicidal thoughts Hallucinations: no auditory hallucinations and no visual hallucinations Cognition: attention grossly intact and language grossly intact Estimated Intelligence: consistent with education level Insight: + limited insight Judgment: + limited judgement Vital Signs (Past 24 Hours): Last Vital Signs Pulse 68 05/08/23 14:15 Resp 14 05/08/23 14:15 BP 141/87 H 05/08/23 14:15 Pulse Ox 97 05/08/23 14:15 O2 Del Method Room Air 05/08/23 14:15 O2 Flow Rate 0 05/07/23 11:22 Review of Systems All systems reviewed & are unremarkable except as noted in HPI & below Results & Data (PSY) Laboratory Results 05/08/23 05/08/23 05/08/23 Range/Units 12:04 08:11 07:04 WBC 7.05 (4.8-10.8) K/ul RBC 4.10 L (4.20-5.40) M/uL Hgb 12.6 (12.0-16.0) g/dl Hct 37.3 (37.0-47.0) % MCV 91.0 (80.0-100.0) fL MCH 30.7 (25.0-34.0) pg MCHC 33.8 (32.0-36.0) g/dL RDW Std Deviation 40.9 (36.4-46.3) fL RDW Coeff of Mirta 12.4 (11.5-14.5) % Plt Count 363 (130-400) K/uL MPV 10.1 (9.4-12.4) fL Immature Gran % (Auto) 0.3 % Neut % (Auto) 57.8 % Lymph % (Auto) 33.2 % Mchenry % (Auto) 7.0 % Eos % (Auto) 1.0 % Baso % (Auto) 0.7 % Neut # (Auto) 4.08 (1.40-6.50) K/uL Lymph # (Auto) 2.34 (1.20-3.40) K/uL Mchenry # (Auto) 0.49 (0.11-0.59) K/uL Eos # (Auto) 0.07 (0.00-0.50) K/uL Baso # (Auto) 0.05 (0.00-0.20) K/uL Immature Gran # (Auto) 0.02 (0.01-0.20) K/uL Sodium 133 L (136-145) mmol/L Potassium 3.8 (3.5-5.1) mmol/L Chloride 102 (98-107) mmol/L Carbon Dioxide 24 (21-32) mmol/L Anion Gap 7 (3-11) BUN 7 (6-23) mg/dl Creatinine 0.57 L (0.6-1.2) mg/dl Est Cr Clr Drug Dosing 182.7 ml/min Est GFR ( Amer) > 150.0 ml/min Est GFR (Non-Af Amer) 132.5 ml/min BUN/Creatinine Ratio 12.3 (10-20) Glucose 328 H* (70-99(Fasting)) mg/dl POC Glucose 381 H* 303 H* (70-99) mg/dl Estimat Average Glucose 209 mg/dl Hemoglobin A1c 8.9 H (4.5-5.6) % Calcium 8.7 (8.6-10.3) mg/dl Magnesium 1.7 (1.7-2.4) mg/dl Total Bilirubin 0.5 (0.2-1.0) mg/dl AST 9 L (13-39) U/L ALT 6 L (7-52) U/L Alkaline Phosphatase 66 (34-104) U/L Total Protein 6.6 (6.0-8.3) gm/dl Albumin 3.6 (3.4-5.0) gm/dl Globulin 3.0 (2.5-4.0) gm/dl Albumin/Globulin Ratio 1.2 (0.9-2) 05/08/23 05/08/23 05/08/23 Range/Units 06:21 03:45 01:38 WBC (4.8-10.8) K/ul RBC (4.20-5.40) M/uL Hgb (12.0-16.0) g/dl Hct (37.0-47.0) % MCV (80.0-100.0) fL MCH (25.0-34.0) pg MCHC (32.0-36.0) g/dL RDW Std Deviation (36.4-46.3) fL RDW Coeff of Mirta (11.5-14.5) % Plt Count (130-400) K/uL MPV (9.4-12.4) fL Immature Gran % (Auto) % Neut % (Auto) % Lymph % (Auto) % Mchenry % (Auto) % Eos % (Auto) % Baso % (Auto) % Neut # (Auto) (1.40-6.50) K/uL Lymph # (Auto) (1.20-3.40) K/uL Mchenry # (Auto) (0.11-0.59) K/uL Eos # (Auto) (0.00-0.50) K/uL Baso # (Auto) (0.00-0.20) K/uL Immature Gran # (Auto) (0.01-0.20) K/uL Sodium (136-145) mmol/L Potassium (3.5-5.1) mmol/L Chloride (98-107) mmol/L Carbon Dioxide (21-32) mmol/L Anion Gap (3-11) BUN (6-23) mg/dl Creatinine (0.6-1.2) mg/dl Est Cr Clr Drug Dosing ml/min Est GFR ( Amer) ml/min Est GFR (Non-Af Amer) ml/min BUN/Creatinine Ratio (10-20) Glucose (70-99(Fasting)) mg/dl POC Glucose 298 H 247 H 197 H (70-99) mg/dl Estimat Average Glucose mg/dl Hemoglobin A1c (4.5-5.6) % Calcium (8.6-10.3) mg/dl Magnesium (1.7-2.4) mg/dl Total Bilirubin (0.2-1.0) mg/dl AST (13-39) U/L ALT (7-52) U/L Alkaline Phosphatase (34-104) U/L Total Protein (6.0-8.3) gm/dl Albumin (3.4-5.0) gm/dl Globulin (2.5-4.0) gm/dl Albumin/Globulin Ratio (0.9-2) 05/07/23 05/07/23 05/07/23 Range/Units 23:18 20:54 20:16 WBC (4.8-10.8) K/ul RBC (4.20-5.40) M/uL Hgb (12.0-16.0) g/dl Hct (37.0-47.0) % MCV (80.0-100.0) fL MCH (25.0-34.0) pg MCHC (32.0-36.0) g/dL RDW Std Deviation (36.4-46.3) fL RDW Coeff of Mirta (11.5-14.5) % Plt Count (130-400) K/uL MPV (9.4-12.4) fL Immature Gran % (Auto) % Neut % (Auto) % Lymph % (Auto) % Mchenry % (Auto) % Eos % (Auto) % Baso % (Auto) % Neut # (Auto) (1.40-6.50) K/uL Lymph # (Auto) (1.20-3.40) K/uL Mchenry # (Auto) (0.11-0.59) K/uL Eos # (Auto) (0.00-0.50) K/uL Baso # (Auto) (0.00-0.20) K/uL Immature Gran # (Auto) (0.01-0.20) K/uL Sodium (136-145) mmol/L Potassium (3.5-5.1) mmol/L Chloride (98-107) mmol/L Carbon Dioxide (21-32) mmol/L Anion Gap (3-11) BUN (6-23) mg/dl Creatinine (0.6-1.2) mg/dl Est Cr Clr Drug Dosing ml/min Est GFR ( Amer) ml/min Est GFR (Non-Af Amer) ml/min BUN/Creatinine Ratio (10-20) Glucose (70-99(Fasting)) mg/dl POC Glucose 246 H 312 H* 319 H* (70-99) mg/dl Estimat Average Glucose mg/dl Hemoglobin A1c (4.5-5.6) % Calcium (8.6-10.3) mg/dl Magnesium (1.7-2.4) mg/dl Total Bilirubin (0.2-1.0) mg/dl AST (13-39) U/L ALT (7-52) U/L Alkaline Phosphatase (34-104) U/L Total Protein (6.0-8.3) gm/dl Albumin (3.4-5.0) gm/dl Globulin (2.5-4.0) gm/dl Albumin/Globulin Ratio (0.9-2) 05/07/23 05/07/23 05/07/23 Range/Units 19:19 18:13 17:23 WBC (4.8-10.8) K/ul RBC (4.20-5.40) M/uL Hgb (12.0-16.0) g/dl Hct (37.0-47.0) % MCV (80.0-100.0) fL MCH (25.0-34.0) pg MCHC (32.0-36.0) g/dL RDW Std Deviation (36.4-46.3) fL RDW Coeff of Mirta (11.5-14.5) % Plt Count (130-400) K/uL MPV (9.4-12.4) fL Immature Gran % (Auto) % Neut % (Auto) % Lymph % (Auto) % Mchenry % (Auto) % Eos % (Auto) % Baso % (Auto) % Neut # (Auto) (1.40-6.50) K/uL Lymph # (Auto) (1.20-3.40) K/uL Mchenry # (Auto) (0.11-0.59) K/uL Eos # (Auto) (0.00-0.50) K/uL Baso # (Auto) (0.00-0.20) K/uL Immature Gran # (Auto) (0.01-0.20) K/uL Sodium (136-145) mmol/L Potassium (3.5-5.1) mmol/L Chloride (98-107) mmol/L Carbon Dioxide (21-32) mmol/L Anion Gap (3-11) BUN (6-23) mg/dl Creatinine (0.6-1.2) mg/dl Est Cr Clr Drug Dosing ml/min Est GFR ( Amer) ml/min Est GFR (Non-Af Amer) ml/min BUN/Creatinine Ratio (10-20) Glucose (70-99(Fasting)) mg/dl POC Glucose 339 H* 326 H* 305 H* (70-99) mg/dl Estimat Average Glucose mg/dl Hemoglobin A1c (4.5-5.6) % Calcium (8.6-10.3) mg/dl Magnesium (1.7-2.4) mg/dl Total Bilirubin (0.2-1.0) mg/dl AST (13-39) U/L ALT (7-52) U/L Alkaline Phosphatase (34-104) U/L Total Protein (6.0-8.3) gm/dl Albumin (3.4-5.0) gm/dl Globulin (2.5-4.0) gm/dl Albumin/Globulin Ratio (0.9-2) 05/07/23 05/07/23 05/07/23 Range/Units 16:53 16:23 16:02 WBC (4.8-10.8) K/ul RBC (4.20-5.40) M/uL Hgb (12.0-16.0) g/dl Hct (37.0-47.0) % MCV (80.0-100.0) fL MCH (25.0-34.0) pg MCHC (32.0-36.0) g/dL RDW Std Deviation (36.4-46.3) fL RDW Coeff of Mirta (11.5-14.5) % Plt Count (130-400) K/uL MPV (9.4-12.4) fL Immature Gran % (Auto) % Neut % (Auto) % Lymph % (Auto) % Mchenry % (Auto) % Eos % (Auto) % Baso % (Auto) % Neut # (Auto) (1.40-6.50) K/uL Lymph # (Auto) (1.20-3.40) K/uL Mchenry # (Auto) (0.11-0.59) K/uL Eos # (Auto) (0.00-0.50) K/uL Baso # (Auto) (0.00-0.20) K/uL Immature Gran # (Auto) (0.01-0.20) K/uL Sodium (136-145) mmol/L Potassium 3.7 (3.5-5.1) mmol/L Chloride (98-107) mmol/L Carbon Dioxide (21-32) mmol/L Anion Gap (3-11) BUN (6-23) mg/dl Creatinine (0.6-1.2) mg/dl Est Cr Clr Drug Dosing ml/min Est GFR ( Amer) ml/min Est GFR (Non-Af Amer) ml/min BUN/Creatinine Ratio (10-20) Glucose (70-99(Fasting)) mg/dl POC Glucose 243 H 99 (70-99) mg/dl Estimat Average Glucose mg/dl Hemoglobin A1c (4.5-5.6) % Calcium (8.6-10.3) mg/dl Magnesium (1.7-2.4) mg/dl Total Bilirubin (0.2-1.0) mg/dl AST (13-39) U/L ALT (7-52) U/L Alkaline Phosphatase (34-104) U/L Total Protein (6.0-8.3) gm/dl Albumin (3.4-5.0) gm/dl Globulin (2.5-4.0) gm/dl Albumin/Globulin Ratio (0.9-2) Medications Administered Acetaminophen (Acetaminophen 325 Mg Tab) 650 mg PO Q6H [facility] Stop: 06/06/23 18:59 Last Admin: 05/08/23 14:14 Dose: Not Given Documented By: Admin: 05/08/23 09:52 Dose: 650 mg Documented By: Admin: 05/08/23 01:38 Dose: 650 mg Documented By: Admin: 05/07/23 18:53 Dose: 650 mg Documented By: JAYSHREE Insulin Aspart (Insulin Aspart Per Unit Charge) [address] [facility]; Protocol Stop: 06/06/23 19:24 Last Admin: 05/08/23 14:21 Dose: 10 units Documented By: JAIDEN Co-signed By: MAYRA Admin: 05/08/23 09:47 Dose: 9 units Documented By: MARY Co-signed By: TYRONE Admin: 05/07/23 21:12 Dose: 4 units Documented By: JAYSHREE Co-signed By: ANGELA Admin: 05/07/23 19:45 Dose: 4 units Documented By: DMLeti Co-signed By: RAFI Coding Level of Care Code 29886 [facility] Intl Hosp Care Lvl 2 Diagnoses Intentional overdose T50.902A Encounter type: initial encounter Diabetes type 1, uncontrolled E10.649 Coma presence: unspecified whether coma present Glycemic state: with hypoglycemia
[2023-05-08 17:03] LABS: Appearance Urine Clear (Clear); Bilirubin Urine Negative (Negative); Blood Urine Negative (Negative); Color Urine Yellow; Glucose Urine UA 3+ (Negative); Ketones Urine 1+ (Negative); Leukocyte Esterase Urine Negative (Negative); Nitrite Urine Negative (Negative); Protein Urine Negative (Negative); Specific Gravity Urine 1.034 (1.000-1.030); Urobilinogen Urine Negative (Negative); pH Urine 6.5 (4.5-7.5)
[2023-05-08] MEDS: LANTUS PER UNIT CHARGE SC SCH (20:18)
[2023-05-09] MEDS: INSULIN ASPART PER UNIT CHARGE SC SCH (00:14)
[2023-05-09 08:20] LABS: Basophils # (auto) 0.04 K/uL (0.00-0.20); Basophils % (auto) 0.5 %; Eosinophils # (auto) 0.08 K/uL (0.00-0.50); Eosinophils % (auto) 0.9 %; Hematocrit (blood only) 37.8 % (37.0-47.0); Hemoglobin 12.8 g/dl (12.0-16.0); Immature Granulocytes # (auto) 0.04 K/uL (0.01-0.20); Immature Granulocytes % (auto) 0.5 %; Lymphocytes # (auto) 2.45 K/uL (1.20-3.40); Lymphocytes % (auto) 27.8 %; Mean Corpuscular Hemoglobin 30.5 pg (25.0-34.0); Mean Corpuscular Hgb Conc 33.9 g/dL (32.0-36.0); Mean Corpuscular Volume 90.2 fL (80.0-100.0); Mean Platelet Volume 10.1 fL (9.4-12.4); Monocytes # (auto) 0.73 K/uL (0.11-0.59); Monocytes % (auto) 8.3 %; Neutrophils # (auto) 5.46 K/uL (1.40-6.50); Platelet Count 402 K/uL (130-400); RDW Coefficient of Variation 12.5 % (11.5-14.5); RDW Standard Deviation 40.6 fL (36.4-46.3); Red Blood Count 4.19 M/uL (4.20-5.40)
[2023-05-09 08:35] LABS: Albumin Globulin Ratio 1.1 (0.9-2); BUN Creatinine Ratio 15.6 (10-20); Bilirubin,Total 0.5 mg/dl (0.2-1.0); Calcium 9.4 mg/dl (8.6-10.3); Creatinine Clr Calc Pharmacy 162.7 ml/min; Est GFR (African American) 147.8 ml/min; Est GFR (Non-African American) 127.6 ml/min; Globulin 3.5 gm/dl (2.5-4.0); Magnesium 1.7 mg/dl (1.7-2.4); Potassium 3.9 mmol/L (3.5-5.1); Total Protein 7.5 gm/dl (6.0-8.3)
[2023-05-09] MEDS: LANTUS PER UNIT CHARGE SC ONE (09:17)
--- NOTE | 2023-05-09 14:38 | Pharmacy Report ---
Pharmacy Glycemic Short Note 2 - Date of Service May 09, 2023 - Glycemic Short BSG Results (Last 24 hours): 05/08/23 05/08/23 05/08/23 16:03 19:52 23:51 Glucose POC Glucose 361 H* 183 H 302 H* 05/09/23 05/09/23 05/09/23 04:07 07:31 07:54 Glucose 244 H POC Glucose 230 H 209 H 05/09/23 12:44 Glucose POC Glucose 404 H* OUTPATIENT ANTIDIABETIC REGIMEN: * Lantus 40 units SC HS * Humalog 20 units SC AC * HbA1c: 8.9% (05/08/23) ASSESSMENT: 05/08: * Persistent hyperglycemia despite 83 units of insulin yesterday: 40 units basal + 43 units bolus * Fasting BSG of 209 mg/dL remains above goal, however significantly improved compared to 05/07. Ordered additional 5 units of Lantus this am. * Lunch BSG of 404 mg/dL. Discussed result with nursing. Carb coverage was not administered with breakfast. Requested RN recheck BSG two hours after lunch insulin administered (22 units) to confirm BSG is trending down. * If patient remains at [facility] this evening will add overnight checks with coverage at 00 and 04. 05/07: * Received 30 units basal + 8 units bolus last night. BSGs trended up to 312 mg/dL. * Fasting BSG was 298 mg/dL this AM. Will increase basal to home dose today. * Lunchtime BSG up to 381 mg/dL. Tightened correction and added carb ratio at breakfast. Will tighten both even further. 05/06: * 22 yo F admitted on 05/07/23 secondary to intentional overdose with insulin. Pharmacy has been consulted to assist with inpatient glycemic management. Patient is a Type 1 diabetic as an outpatient. Please refer to outpatient regimen and most recent HbA1c above. * Patient took 40 units of basal last evening. According to H&P, patient self- administered 40 units of Humalog at 1045 this AM in a suicide attempt. * BSG initially looks okay at 207 mg/dL. One hour later, her BSG dropped to 67 in the ED and a D10W infusion was started at 125 mL/hr. This was reduced to 80 mL/hr around 1300 when BSG was 143 mg/dL. * Recommended discontinuation of D10W infusion as enough half lives had passed to not be concerned with amount of insulin in system. However, after stopping D10W, BSGs trended down to 86 mg/dL then 47 mg/dL. Will continue with D10W at 80 mL/hr for now and check BSG every hour. * No bolus insulin will be ordered at this time. Depending on BSG at dinner time, may need to add bolus insulin. * Basal regimen will be reduced 25% from home and started this evening as patient is type 1 and will require some basal. PLAN FOR INPATIENT GLYCEMIC CONTROL: * Basal insulin * Lantus 5 units SC AM x 1 * Continue Lantus 40 units SC HS * Bolus insulin * NovoLog per scale ACHS or Q6hrs while NPO * Goal Range: Low 120 mg/dL - High 160 mg/dL * Correction Factor: 30 mg/dL/unit * Nutritional / Prandial insulin per carb ratio of 1 unit per 8 grams CHO consumed
[2023-05-09] MEDS: INSULIN ASPART PER UNIT CHARGE SC STA (15:47)
[2023-05-09 23:12] LABS: Marijuana Quant, GCMS Urine 23 ng/mL (<5)
[2023-05-10] MEDS ORDERED: INSULIN ASPART PER UNIT CHARGE SC SCH
[2023-05-10 13:00] LABS: Candida glabrata RNA Negative (Negative); Candida species group RNA POSITIVE (Negative); Trichomonas vaginalis RNA Negative (Negative)
[2023-05-10 13:36] LABS: GC (Neis gonorrhoeae) RNA Not Detected (NotDetected)
--- NOTE | 2023-05-24 07:09 | Discharge Summary ---
Date of Service May 09, 2023 Admission HPI Per Admitting Provider Altagracia is a 22 year old female with a PMH significant for DMI, hypothyroidism, anxiety, and depression who presented to the [facility] ED via EMS on 05/07/23 after intentionally overdosing on her short-acting insulin. The patient is a current [employer] student. She states that she was told by one of her professors this am that she is failing one her her classes and there is nothing that she will be able to do at this time to pass. Because of this she started to experience increased anxiety with thoughts that life was not worth living anymore. Because of this she took 40 units of her NovoLog at approximately 1045 this morning. Shortly after she call the Crisis hotline who then contacted EMS. She currently is without complaints. When asked if she is still having thoughts of harming herself she paused and then said, "not at this time". She has not had thoughts of harming others. She states that she has had thoughts of harming herself in the past when she has had severe anxiety/depression but never acted on them or had a previous plan. When asked, she drinks alcohol approximately 3-4 times a week when she goes out with friends. Her last drink was early this am around 0100. She denies a previous hx of withdrawal if she stops drinking. when asked about tobacco/vaping/recreational drugs, she states that she will occasionally vape/smoke tobacco when out with friends. She does not believe that she has had any other recreational drugs recently. When she went out with friends 2 nights ago she was told she fell while trying to run. Since then her right wrist has been sore. She took some ibuprofen last night which improved the pain but did not resolve it. Her father is driving up from [place] to see her. She has had episodes in the past when she had thoughts of harming herself, but this was the first time she ever acted on the thoughts. Please refer to Dr. Weems' attestation for any changes to the treatment plan Principal Diagnosis Intentional overdose of insulin Discharge Exam Constitutional WD/WN, vitals as above Respiratory normal respiratory effort, lungs clear to auscultation Cardiovascular RRR, no murmur, no edema Gastrointestinal (Abdomen) normal bowel sounds, soft, nontender, no hepatosplenomegaly Discharge Data Allergies Allergy/AdvReac Type Severity Reaction Status Date / Time No Known Drug Allergies Allergy Verified 01/31/21 14:51 Consultations 05/07/23 13:01 ED Decision to Admit Stat 05/07/23 13:10 Consult Psychiatry Routine Hospital Course (1) Intentional overdose: Altagracia Keith is a 22 year old female admitted to [facility] from May 06 - 2023 due to intentional overdose of insulin. She was treated with intravenous dextrose. She is now medically stable for discharge. Due to vaginal discharge a swab was taken for RNA analysis, this is pending on discharge. Please follow up on psychiatry [place]. While on [facility] recommend continuing 40 units of Lantus at night with Novolog: --Goal BSG Range: Low 110 mg/dL, High 160 mg/dL --Correction Factor: 30 mg/dL/unit --Carb Ratio: 7 g/CHO/unit --BSGs ACHS if eating, q6h if npo (2) Diabetes type 1, uncontrolled: (3) Right wrist pain: (4) Hypokalemia: (5) Hypothyroidism: Total Time Total Time Spent Total Time Spent (In Minutes): 35 Discharge Plan Discharge Items Patient Disposition: Transfer Behavioral [facility] Reason For Visit: INTENTIONAL OVERDOSE WITH INSULIN Discharge Diagnosis: Intentional overdose with insulin Activity: Resume your previous activity Non-emergency contact: Primary Care Provider Call non-emergency contact if: you have any medication questions and your symptoms worsen Follow-up/Referrals: R[facility] DC [Other] Diet: Carb Count or DM1 Addtl Attending Provider Instructions: You were admitted to [facility] from May 06 - 2023 due to intentional overdose of insulin. You were treated with dextrose intravenous fluids. You are now medically stable for discharge. Due to vaginal discharge a swab was taken for RNA analysis, this is pending on discharge. This should be followed up with your psychiatry providers if any treatment required. While on [facility] recommend continuing 40 units of Lantus at night with Novolog: --Goal BSG Range: Low 110 mg/dL, High 160 mg/dL --Correction Factor: 30 mg/dL/unit --Carb Ratio: 7 g/CHO/unit --BSGs ACHS if eating, q6h if npo Pending Studies at Discharge: Yes (vaginal swab results) Stand-Alone Forms: My [facility] Medications and DC Order Prescriptions: Continued cholecalciferol (vitamin D3) 0 ea PO DAILY Rx Instructions: unable to verify with pharmacy 05/07/23 insulin lispro [Humalog KwikPen Insulin] 100 unit/mL insulin pen 20 unit subcut TID MDD 60 units Rx Instructions: inject 40 units in divided doses daily per pharmacy insulin glargine [Lantus Solostar U-100 Insulin] 100 unit/mL (3 mL) insulin pen 40 unit subcut HS Baqsimi 3 mg/actuation spray,non-aerosol 0 mg intranasal ONCE Rx Instructions: unable to verify with [facility] pharmacy 05/07/23 No Action fluoxetine 10 mg capsule 10 mg PO DAILY Qty: 56 0RF Rx Instructions: 10 mg po daily x4 days, then 20 mg daily. (DME) pen needle, diabetic 32 gauge x 5/32" needle See Rx Instructions .Route Qty: 100 0RF Rx Instructions: As directed (DME) Contour Test Strips Strip See Rx Instructions .Route Qty: 100 0RF Rx Instructions: Test blood sugar 2 times daily Discharge Orders: Discharge Order (Routine); Ordered 05/09/23 Ordered By: Kolton Leger/Other Patient Handouts: Managing Type 1 Diabetes Admission Data Admit Date/Time: 05/07/23 13:09 Attending Provider: Kolton Menendez Admit Provider: Benedict Weems Primary Care Provider: RYLEY DC Other Providers: Liliana Smart Coding Level of Care Code 33958 INP/OBS DISCH >30 MIN Diagnoses Intentional overdose T50.902A Encounter type: initial encounter Diabetes type 1, uncontrolled E10.649 Coma presence: unspecified whether coma present Glycemic state: with hypoglycemia Right wrist pain M25.531 Hypokalemia E87.6 Hypothyroidism, unspecified type E03.9 Hypothyroidism type: unspecified
== END 2023-05-09 19:53 ==
LOC: ED 11:16 → SUATTDRO 13:09 → EDINP 13:09 → INTOOBSV 13:09 → EDINP 15:49

== ENCOUNTER 2023-05-09 18:37 | Inpatient (IN) ==
[2023-05-09] MEDS ORDERED: MAGNESIUM HYDROXIDE SUSP 30 ML UDC PO PRN (18:46)
[2023-05-09] MEDS ORDERED: hydrOXYzine HCl 25 MG TAB PO PRN ×2 (18:46)
[2023-05-09] MEDS ORDERED: SODIUM CHLORIDE 0.65% NA SOLN 45 ML (OCEAN) PRN (18:46)
[2023-05-09] MEDS ORDERED: ACETAMINOPHEN 325 MG TAB PO PRN (18:46)
[2023-05-09] MEDS ORDERED: BISMUTH SUBSALICYLATE LIQD 236 ML PO PRN (18:46)
[2023-05-09] MEDS ORDERED: ALUMINUM/MAGNESIUM SUSP 30 ML UDC PO PRN (18:46)
[2023-05-09] MEDS ORDERED: PHARMACY GLYCEMIC MGMT CONSULT PRN (19:50)
[2023-05-09] MEDS: LANTUS PER UNIT CHARGE SC ONE (21:00)
[2023-05-09] MEDS: INSULIN ASPART PER UNIT CHARGE SC SCH (22:05)
[2023-05-10] MEDS: INSULIN ASPART PER UNIT CHARGE SC SCH (01:16)
[2023-05-10] MEDS ORDERED: DEXTROSE 50% 50 ML SYRINGE IV PRN (07:30)
[2023-05-10] MEDS ORDERED: GLUCOSE 40% GEL 15 GM TUBE PO PRN (07:30)
[2023-05-10] MEDS ORDERED: GLUCAGON FOR INJ 1 MG VIAL IM PRN (07:30)
[2023-05-10] MEDS ORDERED: GLUCOSE 10 TAB/TUBE PO PRN (07:30)
[2023-05-10] MEDS: LEVOTHYROXINE SODIUM 50 MCG TABLET PO SCH (08:39)
--- NOTE | 2023-05-10 10:20 | Pharmacy Report ---
Pharmacy Glycemic Short Note 2 - Date of Service May 10, 2023 - Glycemic Short BSG Results (Last 24 hours): 05/09/23 05/10/23 05/10/23 21:47 01:01 03:59 POC Glucose 197 H 103 H 128 H OUTPATIENT ANTIDIABETIC REGIMEN: * Lantus 40 units SC HS * Humalog 20 units SC AC * HbA1c: 8.9% (05/08/23) ASSESSMENT: 05/09: * Patient admitted into [facility] last evening. Pharmacy continues with glycemic consult. * Patient received total of 94 units of insulin yesterday, of which 45 units were basal insulin * Fasting BSG 208 mg/dL - will continue with 45 units of basal today * Patient's CR at home is 1:5 - plan to tighten close to home regimen and change to 1:6 05/08: * Persistent hyperglycemia despite 83 units of insulin yesterday: 40 units basal + 43 units bolus * Fasting BSG of 209 mg/dL remains above goal, however significantly improved compared to 05/07. Ordered additional 5 units of Lantus this am. * Lunch BSG of 404 mg/dL. Discussed result with nursing. Carb coverage was not administered with breakfast. Requested RN recheck BSG two hours after lunch insulin administered (22 units) to confirm BSG is trending down. * If patient remains at [facility] this evening will add overnight checks with coverage at 00 and 04. 05/07: * Received 30 units basal + 8 units bolus last night. BSGs trended up to 312 mg/dL. * Fasting BSG was 298 mg/dL this AM. Will increase basal to home dose today. * Lunchtime BSG up to 381 mg/dL. Tightened correction and added carb ratio at breakfast. Will tighten both even further. 05/06: * 22 yo F admitted on 05/07/23 secondary to intentional overdose with insulin. Pharmacy has been consulted to assist with inpatient glycemic management. Patient is a Type 1 diabetic as an outpatient. Please refer to outpatient regimen and most recent HbA1c above. * Patient took 40 units of basal last evening. According to H&P, patient self- administered 40 units of Humalog at 1045 this AM in a suicide attempt. * BSG initially looks okay at 207 mg/dL. One hour later, her BSG dropped to 67 in the ED and a D10W infusion was started at 125 mL/hr. This was reduced to 80 mL/hr around 1300 when BSG was 143 mg/dL. * Recommended discontinuation of D10W infusion as enough half lives had passed to not be concerned with amount of insulin in system. However, after stopping D10W, BSGs trended down to 86 mg/dL then 47 mg/dL. Will continue with D10W at 80 mL/hr for now and check BSG every hour. * No bolus insulin will be ordered at this time. Depending on BSG at dinner time, may need to add bolus insulin. * Basal regimen will be reduced 25% from home and started this evening as patient is type 1 and will require some basal. PLAN FOR INPATIENT GLYCEMIC CONTROL: * Basal insulin * Lantus 45 units HS * Bolus insulin * NovoLog per scale ACHS or Q6hrs while NPO * Goal Range: Low 120 mg/dL - High 160 mg/dL * Correction Factor: 30 mg/dL/unit * Nutritional / Prandial insulin per carb ratio of 1 unit per 6 grams CHO consumed
[2023-05-10] MEDS: FLUCONAZOLE 50 MG TAB PO ONE (15:45)
--- NOTE | 2023-05-10 16:24 | History & Physical ---
Date of Service May 10, 2023 Impression / Recommendations Impression 22 yo female with poorly regulated diabetes transferred from medical following an insulin OD in the context of school stress. Unclear if has separate cannabis abuse or was self medicating. . (1) Depressive disorder: (2) Diabetes type 1, uncontrolled: Coma presence: unspecified whether coma present Glycemic state: with hypoglycemia Qualified Code(s): E10.649 - Type 1 diabetes mellitus with hypoglycemia without coma (3) Hypothyroidism: Plan The patient was admitted to the [facility] ([facility] mental health unit) on q15 min checks (behavioral with suicide precautions) for safety. The patient will participate in group, recreational, and milieu therapies and will be offered additional individual and family sessions as clinically appropriate. Fluconazole X1 for positive apollo swab from ED. Glycemic management per pharmacy. Inventory Assets Strengths: verbal, voluntary Needs: improve coping and insight into condition Suicide Risk Level Suicide Risk Level: Moderate (q15 min suicide checks) Risk Factors Assessment Male: No : No Do You Have Access To A Gun?: No Health Problems: Yes Mental Health Diagnoses: Yes Previous Attempt: Yes Protective Factors Assessment Supportive Family: Yes Psychiatric History Identifying Data HENNY KEENAN is a 22-year-old F, [employer] senior from [facility], was admitted on 05/09/23 19:53 on a 201 voluntary commitment s/p insulin OD (admitted medically on 05/07/23). Chief Complaint "I was stressed about class and relationship stuff. I've never really taken care of my diabetes". History of Present Illness According to initial consult completed 05/08/23: Reviewed and confirmed history as per liaison: Patient was seen for initial consult, father, sister and 1:1 present in room. Patient is currently in ED waiting for a medical bed. Patient alert, pleasant and cooperative. 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 She states "I feel disappointed in myself" It became overwhelming and she then took the extra insulin. She reports this was impulsive with no prior plan. She does report that she has had depression since middle school and had taken her thyroid medication in attempt to end her life. She states "It didn't work." She did not seek treatment for this and states her parents were unaware. She denies any other attempts. No history of inpatient treatment and is on no medications for depression/anxiety. She has had several sessions with [facility] this year and felt they have been helpful. Denies SIB. Denies any issues with D&A. She does report fleeting thoughts of not wanting to be alive several times a week. She scored a #16 on PHQ-9, answering yes to question #9. She denies any access to guns. Today she reports some relief in distress as she was able to reach out to her professor and student care and advocacy. She feels supported by her parents and is hopeful that if she gets back into therapy she can cope better, like when he went to [facility] in the fall. She appears bright in interactions with staff/peers and endorses surprisingly little in the way of depression or anxiety symptoms at baseline. She does describe struggling with motivation toward school for most of her college experience and intermittently uses "enough MJ that is causes a problem" meaning that it starts to "mess" with her sleep and appetite and that was her impetus to go to [facility]. Past Psychiatric History Current Psychiatric Diagnosis: none Outpatient Services: intermittent brief therapy Previous Psych Admissions: no Do You Have Access To A Gun?: No History of Previous Suicide Attempt: Yes Describe Attempts in the Past: took pills when younger, no treatment Past Medication Trials: denied, would prefer to avoid medications Allergies Allergy/AdvReac Type Severity Reaction Status Date / Time No Known Drug Allergies Allergy Verified 01/31/21 14:51 Home Medications Medication Instructions Recorded Confirmed Type blood sugar diagnostic (Contour 12/22/20 05/08/23 History Next Test Strips) cholecalciferol (vitamin D3) 0 ea PO DAILY 12/22/20 05/07/23 History levothyroxine 50 mcg tablet 50 mcg PO DAILY #30 tabs 12/22/20 05/07/23 Rx pen needle, diabetic 32 gauge x #400 ea 12/22/20 05/07/23 Rx 5/32" (BD Ultra-Fine Olya Pen Needle) glucagon 3 mg/actuation nasal 0 mg intranasal ONCE 05/07/23 05/07/23 History spray (Baqsimi) insulin glargine 100 unit/mL (3 40 unit subcut HS 05/07/23 05/07/23 History mL) subcutaneous pen (Lantus Solostar U-100 Insulin) insulin lispro 100 unit/mL 20 unit subcut TID 05/07/23 05/07/23 History subcutaneous pen (Humalog KwikPen (U-100) Insulin) Family History Family History of: Bipolar Family Mental Health History Comment: bipolar - both sides schizophrenia - mom's side anxiety/depression - both sides Alcohol History Hx of Alcohol Use Over the Past 12 Months: Yes (5 plus drinks on weekends) AUDIT Total Score: 7 Smoking Use Have You Smoked or Used Tobacco Products in the Last 30 Days: Yes tobacco type: cigarettes Smoking Status: Current some day smoker Substance History Hx of Prescription Med Misuse Over the Past 12 Months: Yes (overdose on insulin) Hx of Over the Counter Med Misuse Over the Past 12 Months: No Hx of Inhalent Misuse Over the Past 12 Months: No Hx of Organic Substance Use Over the Past 12 Months: No Hx of Illegal Substances/Street Drug Use Over Past 12 Months: No Problems as a Result of Past Substance Use: Attempted Suicide Personal History Living Arrangements: Apartment Highest Grade Completed: Some College Highest Grade Completed Comment: Senior at [employer], studying Sulia science Marital Status: Single Number Of Children: 0 Beliefs That Will Affect Care: None Current Legal Problems: No Hx Traumatic Life Events: No Patient History Medical History Diabetes type 1, uncontrolled Vitamin D deficiency Hypothyroidism Family History Denies family history of Diabetes Dyslipidemia Heart disease Kidney disease Myocardial infarction Hypertension Thyroid disorder Social History Smoking Status: Current some day smoker Tobacco Type: E-cigarettes / Vaping Do You Dip or Chew Tobacco: No; Hx Alcohol Use: Yes Alcohol Intake Frequency: Monthly or Less Hx Substance Use: No Preferred Language: Guinean Communication Ability: Effective Yarn Preparation Supervisor Required: No Beliefs That Will Affect Care: None marital status: Single Current Living Situation: Family current occupational status: student Feels Safe at Home: Yes Gender Identity: Female Assistive Devices: None Review of Systems Review of Systems: All systems reviewed & are unremarkable except as noted in HPI & below Physical Exam Psychiatric: Orientation: alert and oriented x 3 Apperance: appropriately dressed and appropriately groomed Eye Contact: good eye contact Motor Behavior: no abnormal motor movements Speech: normal rate/rhythm/volume of speech Affect: euthymic affect Mood: no depressed mood Thought Process: goal directed thought process Thought Content: reality based without de lusions Suicidal Thoughts: denies suicidal thoughts Homicidal Thoughts: denies homicidal thoughts Hallucinations: no auditory hallucinations and no visual hallucinations Cognition: attention grossly intact and language grossly intact Estimated Intelligence: consistent with education level Insight: + limited insight Judgment: + limited judgement Vital Signs (Past 24 Hours): Last Vital Signs Temp 36.9 C 05/10/23 06:43 Pulse 76 05/10/23 06:44 Resp 16 05/10/23 06:43 BP 124/84 05/10/23 06:44 Pulse Ox 99 05/09/23 20:38 O2 Del Method Room Air 05/09/23 20:38 Exam Statement: A physical exam was performed by Dr. Menendez for the purposes of medical clearance. I accept that physical as correct and adequate for the purposes of the inpatient physical exam. Results & Data ([facility]) Laboratory Results 05/07/23 12:34 05/07/23 11:45 Lab Results 05/07/23 05/07/23 05/07/23 Range/Units 11:24 11:45 11:56 WBC (4.8-10.8) K/ul RBC (4.20-5.40) M/uL Hgb (12.0-16.0) g/dl Hct (37.0-47.0) % MCV (80.0-100.0) fL MCH (25.0-34.0) pg MCHC (32.0-36.0) g/dL RDW Std Deviation (36.4-46.3) fL RDW Coeff of Mirta (11.5-14.5) % Plt Count (130-400) K/uL MPV (9.4-12.4) fL Immature Gran % (Auto) % Neut % (Auto) % Lymph % (Auto) % [place] % (Auto) % Eos % (Auto) % Baso % (Auto) % Neut # (Auto) (1.40-6.50) K/uL Lymph # (Auto) (1.20-3.40) K/uL [place] # (Auto) (0.11-0.59) K/uL Eos # (Auto) (0.00-0.50) K/uL Baso # (Auto) (0.00-0.20) K/uL Immature Gran # (Auto) (0.01-0.20) K/uL Sodium 134 L (136-145) mmol/L Potassium 3.1 L (3.5-5.1) mmol/L Chloride 104 (98-107) mmol/L Carbon Dioxide 22 (21-32) mmol/L Anion Gap 8 (3-11) BUN 8 (6-23) mg/dl Creatinine 0.63 (0.6-1.2) mg/dl Est Cr Clr Drug Dosing 165.3 ml/min Est GFR ( Amer) 148.6 ml/min Est GFR (Non-Af Amer) 128.2 ml/min BUN/Creatinine Ratio 12.7 (10-20) Glucose 156 H (70-99(Fasting)) mg/dl POC Glucose 207 H 104 H (70-99) mg/dl Calcium 9.3 (8.6-10.3) mg/dl Magnesium 1.6 L (1.7-2.4) mg/dl Total Bilirubin 0.5 (0.2-1.0) mg/dl AST 11 L (13-39) U/L ALT 10 (7-52) U/L Alkaline Phosphatase 86 (34-104) U/L Total Protein 7.8 (6.0-8.3) gm/dl Albumin 4.3 (3.4-5.0) gm/dl Globulin 3.5 (2.5-4.0) gm/dl Albumin/Globulin Ratio 1.2 (0.9-2) TSH 1.709 (0.300-4.500) uIu/ml Salicylates < 3.0 L (3.0-30) mg/dl Acetaminophen < 3 L (10-30) ug/ml Ethyl Alcohol mg/dL < 10.0 (<10.0) mg/dl 05/07/23 05/07/23 05/07/23 Range/Units 12:18 12:34 12:47 WBC 8.41 (4.8-10.8) K/ul RBC 4.20 (4.20-5.40) M/uL Hgb 13.0 (12.0-16.0) g/dl Hct 37.4 (37.0-47.0) % MCV 89.0 (80.0-100.0) fL MCH 31.0 (25.0-34.0) pg MCHC 34.8 (32.0-36.0) g/dL RDW Std Deviation 39.0 (36.4-46.3) fL RDW Coeff of Mirta 12.0 (11.5-14.5) % Plt Count 407 H (130-400) K/uL MPV 10.1 (9.4-12.4) fL Immature Gran % (Auto) 0.2 % Neut % (Auto) 74.9 % Lymph % (Auto) 19.7 % [place] % (Auto) 4.5 % Eos % (Auto) 0.2 % Baso % (Auto) 0.5 % Neut # (Auto) 6.29 (1.40-6.50) K/uL Lymph # (Auto) 1.66 (1.20-3.40) K/uL [place] # (Auto) 0.38 (0.11-0.59) K/uL Eos # (Auto) 0.02 (0.00-0.50) K/uL Baso # (Auto) 0.04 (0.00-0.20) K/uL Immature Gran # (Auto) 0.02 (0.01-0.20) K/uL Sodium (136-145) mmol/L Potassium (3.5-5.1) mmol/L Chloride (98-107) mmol/L Carbon Dioxide (21-32) mmol/L Anion Gap (3-11) BUN (6-23) mg/dl Creatinine (0.6-1.2) mg/dl Est Cr Clr Drug Dosing ml/min Est GFR ( Amer) ml/min Est GFR (Non-Af Amer) ml/min BUN/Creatinine Ratio (10-20) Glucose (70-99(Fasting)) mg/dl POC Glucose 67 L* 127 H (70-99) mg/dl Calcium (8.6-10.3) mg/dl Magnesium (1.7-2.4) mg/dl Total Bilirubin (0.2-1.0) mg/dl AST (13-39) U/L ALT (7-52) U/L Alkaline Phosphatase (34-104) U/L Total Protein (6.0-8.3) gm/dl Albumin (3.4-5.0) gm/dl Globulin (2.5-4.0) gm/dl Albumin/Globulin Ratio (0.9-2) TSH (0.300-4.500) uIu/ml Salicylates (3.0-30) mg/dl Acetaminophen (10-30) ug/ml Ethyl Alcohol mg/dL (<10.0) mg/dl Laboratory Results - last 24 hr 05/09/23 05/10/23 05/10/23 21:47 01:01 03:59 POC Glucose 197 H 103 H 128 H Current Inpatient Medications Current Inpatient Medications: Current Inpatient Medications Acetaminophen (Acetaminophen 325 Mg Tab) 650 mg PO Q4H PRN PRN Reason: Headache or Minor Fever Stop: 06/08/23 18:45 Al Hydrox/Mg Hydrox/Simethicone (Aluminum/Magnesium Susp 30 Ml Udc) 30 ml PO Q4H PRN PRN Reason: GI Upset Stop: 06/08/23 18:45 Bismuth Subsalicylate (Bismuth Subsalicylate Liqd 236 Ml) 15 ml PO PRN PRN PRN Reason: Loose Stool Stop: 06/08/23 18:45 Dextrose (Dextrose 50% 50 Ml Syringe) 25 - 50 ml IV UD PRN; Protocol PRN Reason: Hypoglycemia Protocol Stop: 06/09/23 07:29 Glucagon (Glucagon For Inj 1 Mg Vial) 1 mg IM UD PRN; Protocol PRN Reason: Hypoglycemia Protocol Stop: 06/09/23 07:29 Glucose (Glucose 40% Gel 15 Gm Tube) 15 - 30 gm PO UD PRN; Protocol PRN Reason: Hypoglycemia Protocol Stop: 06/09/23 07:29 Glucose (Glucose 10 Tab/Tube) 4 - 8 tab PO UD PRN; Protocol PRN Reason: Hypoglycemia Protocol Stop: 06/09/23 07:29 Hydroxyzine HCl (Hydroxyzine Hcl 25 Mg Tab) 50 mg PO HSZ PRN PRN Reason: Insomnia Stop: 06/08/23 18:45 Hydroxyzine HCl (Hydroxyzine Hcl 25 Mg Tab) 25 mg PO Q4H PRN PRN Reason: Anxiety Stop: 06/08/23 18:45 Insulin Aspart (Insulin Aspart Per Unit Charge) 0 units SC ACHS QUEEINE Stop: 06/08/23 21:59 Last Admin: 05/10/23 13:16 Dose: 22 units Insulin Aspart (Insulin Aspart Per Unit Charge) 0 units SC 0000 [facility]ENIE Stop: 06/10/23 00:00 Insulin Glargine (Lantus Per Unit Charge) 45 units SC DAILY@1700 [facility] Stop: 06/09/23 16:59 Levothyroxine Sodium (Levothyroxine Sodium 50 Mcg Tablet) 50 mcg PO DAILYBB [facility] Stop: 06/09/23 07:59 Last Admin: 05/10/23 08:39 Dose: 50 mcg Magnesium Hydroxide (Magnesium Hydroxide Susp 30 Ml Udc) 30 ml PO DAILY PRN PRN Reason: Constipation Stop: 06/08/23 18:45 Miscellaneous (Carbohydrates For Hypoglycemia ) 15 - 30 gm PO UD PRN PRN Reason: Hypoglycemia Treatment Stop: 06/09/23 07:29 Miscellaneous Information (Pharmacy Glycemic Mgmt Consult) 1 each N/A UD PRN; Protocol PRN Reason: Consult Stop: 06/08/23 19:49 Sodium Chloride (Sodium Chloride 0.65% Na Soln 45 Ml ([place])) 1 - 2 sprays NA PRN PRN PRN Reason: Nasal Dryness/Congestion Stop: 06/08/23 18:45
[2023-05-10] MEDS: LANTUS PER UNIT CHARGE SC SCH (17:32)
[2023-05-10] MEDS: CARBOHYDRATES FOR HYPOGLYCEMIA PO PRN (20:04)
[2023-05-10] MEDS ORDERED: LANTUS PER UNIT CHARGE SC SCH (22:00)
[2023-05-11] MEDS: INSULIN ASPART PER UNIT CHARGE SC SCH (00:11)
--- NOTE | 2023-05-11 16:43 | Psychiatric Progress Note ---
Date of Service May 11, 2023 Impression / Recommendations Impression 22 yo female with poorly regulated diabetes transferred from medical following an insulin OD in the context of school stress. Unclear if has separate cannabis abuse or was self medicating. 05/11/23: Patient is attending groups and activities reliably. She started to think about her future. Today I spent 36 minutes on the case. This included meeting with the patient, reviewing the chart, nursing report, multidisciplinary team meeting, orders, and documentation. (1) Depressive disorder: (2) Diabetes type 1, uncontrolled: (3) Hypothyroidism: Plan 05/11/2023: I encouraged the patient to take part in our therapeutic milieu, attend groups and activities, try not to isolate, and maintain good hygiene. We talked about the possibility of starting an antidepressant. She is going to contact her sister and aunt who have both been on antidepressants to see what they were and how it affected them. She knows that her mother is encouraging her to start an antidepressant as well. This was a very serious suicide attempt and I want to make sure that she is going to be okay before we discharge her. 05/10/2023: The patient was admitted to the [facility] ([facility] mental health unit) on q15 min checks (behavioral with suicide precautions) for safety. The patient will participate in group, recreational, and milieu therapies and will be offered additional individual and family sessions as clinically appropriate. Fluconazole X1 for positive apollo swab from ED. Glycemic management per pharmacy. Inventory Assets Strengths: verbal, voluntary Needs: improve coping and insight into condition Suicide Risk Level Suicide Risk Level: Moderate (q15 min suicide checks) Risk Factors Assessment Male: No : No Do You Have Access To A Gun?: No Health Problems: Yes Mental Health Diagnoses: Yes Previous Attempt: Yes Protective Factors Assessment Supportive Family: Yes Interval History Identifying Information ALTAGRACIA KEENAN is a 22-year-old F, [employer] senior from [facility], was admitted on 05/09/23 19:53 on a 201 voluntary commitment s/p insulin OD (admitted medically on 05/07/23). Chief Complaint "I tried to kill myself." Review of Systems Sleep Information Total Hours of Sleep: 6 Sleep Comments: Was awakened due to ordered blood sugar checks Meal Information Percent Meal Consumed - Breakfast: 100 Percent Meal Consumed - Lunch: 60 Percent Meal Consumed - Dinner: 100 Subjective Subjective Today I met with the patient, received nursing report, and reviewed her chart. We also had a multidisciplinary meeting to discuss her care. Altagracia is in our hospital after she tried to end her life by overdosing on insulin that she takes for her type 1 diabetes. Staff report that she has been out of her room and going to groups. Her A1c is 8.9. She described her mood as 5 out of 10 but feels "stuck." Last evening, I received a call that her blood sugars had been low. Blood sugar around 8 PM was at 54 and she was given juice and eventually by 8:30 PM her glucose was at 90. She was feeling better physically as well. When I met with the patient today, she says that she has been doing all right lately and feels fine "but "it got to that point" where she wanted to impulsively. She is feeling well physically. She is sleeping and eating okay. We switched her to a vegetarian diet per her request. She is excited about seeing a friend for a visit today. She denied suicidal or homicidal thoughts today. We also spent some time talking about the possibility of using an antidepressant. Physical Exam Psychiatric Patient was alert and cooperative. Eye contact was good. She was clean and well-groomed. Speech was normal. Mood was "fine." Affect seemed excessively bright. Thought process was logical and goal-directed. There was no evidence of any hallucinations or delusions. Patient denied any suicidal or homicidal thoughts. Memory and concentration were good. No abnormal movements were seen. Gait was normal. Insight and judgment are impaired. Vital Signs (Past 24 Hours) Last Vital Signs Temp 36.6 C 05/11/23 06:46 Pulse 99 H 05/11/23 06:47 Resp 16 05/11/23 06:46 BP 128/83 05/11/23 06:47 Pulse Ox 99 05/09/23 20:38 O2 Del Method Room Air 05/09/23 20:38 Results & Data ([facility]) Laboratory Results Laboratory Results - last 24 hr 05/10/23 05/10/23 05/10/23 17:03 20:35 21:28 POC Glucose 177 H 90 72 05/10/23 05/11/23 23:59 12:36 POC Glucose 70 169 H Current Inpatient Medications Current Inpatient Medications: Current Inpatient Medications Acetaminophen (Acetaminophen 325 Mg Tab) 650 mg PO Q4H PRN PRN Reason: Headache or Minor Fever Stop: 04/20/24 18:45 Al Hydrox/Mg Hydrox/Simethicone (Aluminum/Magnesium Susp 30 Ml Udc) 30 ml PO Q4H PRN PRN Reason: GI Upset Stop: 06/08/23 18:45 Bismuth Subsalicylate (Bismuth Subsalicylate Liqd 236 Ml) 15 ml PO PRN PRN PRN Reason: Loose Stool Stop: 06/08/23 18:45 Dextrose (Dextrose 50% 50 Ml Syringe) 25 - 50 ml IV UD PRN; Protocol PRN Reason: Hypoglycemia Protocol Stop: 06/09/23 07:29 Glucagon (Glucagon For Inj 1 Mg Vial) 1 mg IM UD PRN; Protocol PRN Reason: Hypoglycemia Protocol Stop: 06/09/23 07:29 Glucose (Glucose 40% Gel 15 Gm Tube) 15 - 30 gm PO UD PRN; Protocol PRN Reason: Hypoglycemia Protocol Stop: 06/09/23 07:29 Glucose (Glucose 10 Tab/Tube) 4 - 8 tab PO UD PRN; Protocol PRN Reason: Hypoglycemia Protocol Stop: 06/09/23 07:29 Hydroxyzine HCl (Hydroxyzine Hcl 25 Mg Tab) 50 mg PO HSZ PRN PRN Reason: Insomnia Stop: 06/08/23 18:45 Hydroxyzine HCl (Hydroxyzine Hcl 25 Mg Tab) 25 mg PO Q4H PRN PRN Reason: Anxiety Stop: 06/08/23 18:45 Insulin Aspart (Insulin Aspart Per Unit Charge) 0 units SC ACHS [facility] Stop: 06/08/23 21:59 Last Admin: 05/11/23 13:27 Dose: 13 units Insulin Aspart (Insulin Aspart Per Unit Charge) 0 units SC 0000 [facility] Stop: 06/10/23 00:00 Last Admin: 05/11/23 00:11 Dose: Not Given Insulin Glargine (Lantus Per Unit Charge) 45 units SC DAILY@1700 [facility] Stop: 06/09/23 16:59 Last Admin: 05/10/23 17:32 Dose: 45 units Magnesium Hydroxide (Magnesium Hydroxide Susp 30 Ml Udc) 30 ml PO DAILY PRN PRN Reason: Constipation Stop: 06/08/23 18:45 Miscellaneous (Carbohydrates For Hypoglycemia ) 15 - 30 gm PO UD PRN PRN Reason: Hypoglycemia Treatment Stop: 06/09/23 07:29 Last Admin: 05/10/23 20:24 Dose: 15 gm Miscellaneous Information (Pharmacy Glycemic Mgmt Consult) 1 each N/A UD PRN; Protocol PRN Reason: Consult Stop: 06/08/23 19:49 Sodium Chloride (Sodium Chloride 0.65% Na Soln 45 Ml ([place])) 1 - 2 sprays NA PRN PRN PRN Reason: Nasal Dryness/Congestion Stop: 06/08/23 18:45 Mental Health & Subst Abuse Tx Real Estate Associate Name of Real Estate Associate: [employer]oc[employer] Phone Number for Real Estate Associate: [phone] Date of Appointment with Real Estate Associate: 05/17/23 Time of Appointment with Real Estate Associate: 1:15 PM Case Management Appointment Comment: Please check [employer] email for Zoom link. (2) Diabetes type 1, uncontrolled Coma presence: unspecified whether coma present Glycemic state: with hypoglycemia Qualified Code(s): E10.649 - Type 1 diabetes mellitus with hypoglycemia without coma
[2023-05-11] MEDS: LANTUS PER UNIT CHARGE SC SCH (18:36)
--- NOTE | 2023-05-12 09:54 | Psychiatric Progress Note ---
Date of Service May 12, 2023 Impression / Recommendations Impression 22 yo female with poorly regulated diabetes transferred from medical following an insulin OD in the context of school stress. Unclear if has separate cannabis abuse or was self medicating. 05/12/23: Patient is doing well with programming. She is trying to work hard, but she also does not want to be here. He is willing to start an antidepressant in addition to individual therapy. Today I spent 41 minutes on the case. This included meeting with the patient, reviewing the chart, some individual therapy, nursing report, multidisciplinary team meeting, orders, and documentation. (1) Depressive disorder: (2) Diabetes type 1, uncontrolled: (3) Hypothyroidism: Plan 05/12/2023: We will continue with our current level of observation and precautions. Today, we will start fluoxetine 10 mg daily with a plan to try to get to 20 mg daily by discharge. I reviewed the uses, side effects, and time course and the patient gave informed consent. We also spent some time talking about coping skills and I gave her an exercise to try to come up with a long list of coping skills for her various situations that she is commonly in. For example, at 2 in the morning, going for a walk is not a good coping skill. She will come up with better once for that time. Today I also used a positive psychology approach and we talked about some strategies she can use to try to help improve her mood by focusing on the good things going on around her rather than just the negative. She is going to start listing "3 good things" that occur daily as well as performing an "act of kindness" daily and log of those things in her journal. We will try to set up a family meeting tomorrow or Saturday. 05/11/2023: I encouraged the patient to take part in our therapeutic milieu, at tend groups and activities, try not to isolate, and maintain good hygiene. We talked about the possibility of starting an antidepressant. She is going to contact her sister and aunt who have both been on antidepressants to see what they were and how it affected them. She knows that her mother is encouraging her to start an antidepressant as well. This was a very serious suicide attempt and I want to make sure that she is going to be okay before we discharge her. 05/10/2023: The patient was admitted to the [facility] ([facility] mental health unit) on q15 min checks (behavioral with suicide precautions) for safety. The patient will participate in group, recreational, and milieu therapies and will be offered additional individual and family sessions as clinically appropriate. Fluconazole X1 for positive apollo swab from ED. Glycemic management per pharmacy. Inventory Assets Strengths: verbal, voluntary Needs: improve coping and insight into condition Suicide Risk Level Suicide Risk Level: Low (q15 min observation checks) Risk Factors Assessment Male: No : No Do You Have Access To A Gun?: No Health Problems: Yes Mental Health Diagnoses: Yes Previous Attempt: Yes Protective Factors Assessment Supportive Family: Yes Interval History Identifying Information ALTAGRACIA KEENAN is a 22-year-old F, [employer] senior from [facility], was admitted on 05/09/23 19:53 on a 201 voluntary commitment s/p insulin OD (admitted medically on 05/07/23). Chief Complaint "I tried to kill myself." Review of Systems Sleep Information Total Hours of Sleep: 6 Sleep Comments: pt appeared to be asleep @[facility] and thereafter. pt on q-15 minute checks Meal Information Percent Meal Consumed - Breakfast: 100 Percent Meal Consumed - Lunch: 60 Percent Meal Consumed - Dinner: 75 Subjective Subjective Today I met with the patient, received nursing report, and reviewed her chart. We also had a multidisciplinary meeting to discuss her care. Altagracia is in our hospital after she tried to end her life by overdosing on insulin that she takes for her type 1 diabetes. Staff report that she went to most of the groups yesterday. She was somewhat tearful after a phone call. She has been spending a lot of time on the phone talking to various people. Her blood sugars have still been somewhat up-and-down. Last night after dinner her blood sugar was 68 and then around 9 PM it was up at 211. When I met with the patient this morning, she said that she had a good visit with a friend yesterday and enjoyed a movie. This morning, she said that her blood sugar was 127. She denies any physical issues. She sad about having to be here but understands that she needed to be here. She described her mood as "not satisfied with just being fine." She denies suicidal or homicidal thoughts. She denies any self-harm urges. She spoke with her mother about medications and it turns out that her sister was on an anticonvulsant, not an antidepressant. She says that she has been getting along well with her peers. After talking with her mother she decided that she would like to move forward with trying fluoxetine. Physical Exam Psychiatric Patient was alert and cooperative. Eye contact was good. She was clean and well-groomed. Speech was normal. Mood was "not satisfied with just being fine." Affect seemed bright, but not excessively bright. Thought process was logical and goal-directed. There was no evidence of any hallucinations or delusions. Patient denied any suicidal or homicidal thoughts. Memory and concentration were good. No abnormal movements were seen. Gait was normal. Insight and judgment are impaired. Vital Signs (Past 24 Hours) Last Vital Signs Temp 36.7 C 05/12/23 06:52 Pulse 81 05/12/23 06:52 Resp 16 05/12/23 06:52 BP 130/89 05/12/23 06:52 Pulse Ox 99 05/09/23 20:38 O2 Del Method Room Air 05/09/23 20:38 Results & Data ([facility]) Laboratory Results Laboratory Results - last 24 hr 05/11/23 05/11/23 05/11/23 12:36 17:23 18:19 POC Glucose 169 H 68 L* 194 H 05/11/23 05/12/23 22:16 08:22 POC Glucose 211 H 129 H Current Inpatient Medications Current Inpatient Medications: Current Inpatient Medications Acetaminophen (Acetaminophen 325 Mg Tab) 650 mg PO Q4H PRN PRN Reason: Headache or Minor Fever Stop: 06/08/23 18:45 Al Hydrox/Mg Hydrox/Simethicone (Aluminum/Magnesium Susp 30 Ml Udc) 30 ml PO Q4H PRN PRN Reason: GI Upset Stop: 06/08/23 18:45 Bismuth Subsalicylate (Bismuth Subsalicylate Liqd 236 Ml) 15 ml PO PRN PRN PRN Reason: Loose Stool Stop: 06/08/23 18:45 Dextrose (Dextrose 50% 50 Ml Syringe) 25 - 50 ml IV UD PRN; Protocol PRN Reason: Hypoglycemia Protocol Stop: 06/09/23 07:29 Fluoxetine HCl (Fluoxetine Hcl 10 Mg Cap) 10 mg PO QAM QUEENIE Stop: 06/11/23 09:44 Glucagon (Glucagon For Inj 1 Mg Vial) 1 mg IM UD PRN; Protocol PRN Reason: Hypoglycemia Protocol Stop: 06/09/23 07:29 Glucose (Glucose 40% Gel 15 Gm Tube) 15 - 30 gm PO UD PRN; Protocol PRN Reason: Hypoglycemia Protocol Stop: 06/09/23 07:29 Glucose (Glucose 10 Tab/Tube) 4 - 8 tab PO UD PRN; Protocol PRN Reason: Hypoglycemia Protocol Stop: 06/09/23 07:29 Hydroxyzine HCl (Hydroxyzine Hcl 25 Mg Tab) 50 mg PO HSZ PRN PRN Reason: Insomnia Stop: 06/08/23 18:45 Hydroxyzine HCl (Hydroxyzine Hcl 25 Mg Tab) 25 mg PO Q4H PRN PRN Reason: Anxiety Stop: 06/08/23 18:45 Insulin Aspart (Insulin Aspart Per Unit Charge) 0 units SC ACHS [facility] Stop: 06/08/23 21:59 Last Admin: 05/12/23 09:00 Dose: 5 units Insulin Aspart (Insulin Aspart Per Unit Charge) 0 units SC 0000 [facility] Stop: 06/10/23 00:00 Last Admin: 05/12/23 01:27 Dose: Not Given Insulin Glargine (Lantus Per Unit Charge) 40 units SC DAILY@1700 [facility] Stop: 06/10/23 18:29 Last Admin: 05/11/23 18:36 Dose: 40 units Magnesium Hydroxide (Magnesium Hydroxide Susp 30 Ml Udc) 30 ml PO DAILY PRN PRN Reason: Constipation Stop: 06/08/23 18:45 Miscellaneous (Carbohydrates For Hypoglycemia ) 15 - 30 gm PO UD PRN PRN Reason: Hypoglycemia Treatment Stop: 06/09/23 07:29 Last Admin: 05/10/23 20:24 Dose: 15 gm Miscellaneous Information (Pharmacy Glycemic Mgmt Consult) 1 each N/A UD PRN; Protocol PRN Reason: Consult Stop: 06/08/23 19:49 Sodium Chloride (Sodium Chloride 0.65% Na Soln 45 Ml ([place])) 1 - 2 sprays NA PRN PRN PRN Reason: Nasal Dryness/Congestion Stop: 06/08/23 18:45 Mental Health & Subst Abuse Tx Fisheries Inspector Name of Fisheries Inspector: [facility] Phone Number for Fisheries Inspector: [phone] Date of Appointment with Fisheries Inspector: 05/17/23 Time of Appointment with Fisheries Inspector: 1:15 PM Case Management Appointment Comment: Please check [employer] email for Zoom link. (2) Diabetes type 1, uncontrolled Coma presence: unspecified whether coma present Glycemic state: with hypoglycemia Qualified Code(s): E10.649 - Type 1 diabetes mellitus with hypoglycemia without coma (3) Hypothyroidism Hypothyroidism type: unspecified Qualified Code(s): E03.9 - Hypothyroidism, unspecified
[2023-05-12] MEDS: FLUoxetine HCL 10 MG CAP PO SCH (11:06)
--- NOTE | 2023-05-13 09:26 | Pharmacy Report ---
Pharmacy Glycemic Short Note 2 - Date of Service May 13, 2023 - Glycemic Short BSG Results (Last 24 hours): 05/12/23 05/12/23 05/12/23 12:28 17:11 21:08 POC Glucose 133 H 131 H 220 H 05/13/23 08:30 POC Glucose 147 H OUTPATIENT ANTIDIABETIC REGIMEN: * Lantus 40 units SC HS * Humalog 20 units SC AC * HbA1c: 8.9% (05/08/23) ASSESSMENT: 05/12: * Patient received total of 74 units of insulin yesterday, of which 40 units were basal insulin * Fasting BSG 147 mg/dL - will continue same basal (home dose) * No change to CF/CR 05/09: * Patient admitted into [facility] last evening. Pharmacy continues with glycemic consult. * Patient received total of 94 units of insulin yesterday, of which 45 units were basal insulin * Fasting BSG 208 mg/dL - will continue with 45 units of basal today * Patient's CR at home is 1:5 - plan to tighten close to home regimen and change to 1:6 05/08: * Persistent hyperglycemia despite 83 units of insulin yesterday: 40 units basal + 43 units bolus * Fasting BSG of 209 mg/dL remains above goal, however significantly improved compared to 05/07. Ordered additional 5 units of Lantus this am. * Lunch BSG of 404 mg/dL. Discussed result with nursing. Carb coverage was not administered with breakfast. Requested RN recheck BSG two hours after lunch insulin administered (22 units) to confirm BSG is trending down. * If patient remains at [facility] this evening will add overnight checks with coverage at 00 and 04. 05/07: * Received 30 units basal + 8 units bolus last night. BSGs trended up to 312 mg/dL. * Fasting BSG was 298 mg/dL this AM. Will increase basal to home dose today. * Lunchtime BSG up to 381 mg/dL. Tightened correction and added carb ratio at breakfast. Will tighten both even further. 05/06: * 22 yo F admitted on 05/07/23 secondary to intentional overdose with insulin. Pharmacy has been consulted to assist with inpatient glycemic management. Patient is a Type 1 diabetic as an outpatient. Please refer to outpatient regimen and most recent HbA1c above. * Patient took 40 units of basal last evening. According to H&P, patient self- administered 40 units of Humalog at 1045 this AM in a suicide attempt. * BSG initially looks okay at 207 mg/dL. One hour later, her BSG dropped to 67 in the ED and a D10W infusion was started at 125 mL/hr. This was reduced to 80 mL/hr around 1300 when BSG was 143 mg/dL. * Recommended discontinuation of D10W infusion as enough half lives had passed to not be concerned with amount of insulin in system. However, after stopping D10W, BSGs trended down to 86 mg/dL then 47 mg/dL. Will continue with D10W at 80 mL/hr for now and check BSG every hour. * No bolus insulin will be ordered at this time. Depending on BSG at dinner time, may need to add bolus insulin. * Basal regimen will be reduced 25% from home and started this evening as patient is type 1 and will require some basal. PLAN FOR INPATIENT GLYCEMIC CONTROL: * Basal insulin * Lantus 40 units daily * Bolus insulin * NovoLog per scale ACHS or Q6hrs while NPO * Goal Range: Low 120 mg/dL - High 160 mg/dL * Correction Factor: 30 mg/dL/unit * Nutritional / Prandial insulin per carb ratio of 1 unit per 6 grams CHO consumed
--- NOTE | 2023-05-13 11:24 | Discharge Summary ---
Date of Service May 13, 2023 History of Present Illness According to initial consult completed 05/08/23: Reviewed and confirmed history as per liaison: Patient was seen for initial consult, father, sister and 1:1 present in room. Patient is currently in ED waiting for a medical bed. Patient alert, pleasant and cooperative. 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 She states "I feel disappointed in myself" It became overwhelming and she then took the extra insulin. She reports this was impulsive with no prior plan. She does report that she has had depression since middle school and had taken her thyroid medication in attempt to end her life. She states "It didn't work." She did not seek treatment for this and states her parents were unaware. She denies any other attempts. No history of inpatient treatment and is on no medications for depression/anxiety. She has had several sessions with [facility] this year and felt they have been helpful. Denies SIB. Denies any issues with D&A. She does report fleeting thoughts of not wanting to be alive several times a week. She scored a #16 on PHQ-9, answering yes to question #9. She denies any access to guns. Today she reports some relief in distress as she was able to reach out to her professor and student care and advocacy. She feels supported by her parents and is hopeful that if she gets back into therapy she can cope better, like when he went to [employer] in the fall. She appears bright in interactions with staff/peers and endorses surprisingly little in the way of depression or anxiety symptoms at baseline. She does describe struggling with motivation toward school for most of her college experience and intermittently uses "enough MJ that is causes a problem" meaning that it starts to "mess" with her sleep and appetite and that was her impetus to go to [facility]. Physical Exam Psychiatric Patient was alert and cooperative. Eye contact was good. She was clean and well-groomed. Speech was normal. Mood was "ready and excited to leave." Affect seemed bright, but not excessively bright. Thought process was logical and goal-directed. There was no evidence of any hallucinations or delusions. Patient denied any suicidal or homicidal thoughts. Memory and concentration were good. No abnormal movements were seen. Gait was normal. Insight and judgment are impaired. Vital Signs (Past 24 Hours) Last Vital Signs Temp 36.8 C 05/13/23 06:48 Pulse 86 05/13/23 06:49 Resp 16 05/13/23 06:48 BP 122/81 05/13/23 06:49 Pulse Ox 99 05/09/23 20:38 O2 Del Method Room Air 05/09/23 20:38 Principal Diagnosis Unspecified depressive disorder Psychiatric Data Patient was admitted to the psychiatric unit for safety, further evaluation, and treatment. She took part in our therapeutic milieu, attended groups and activities, maintain good hygiene, and try not to isolate. She participated well in groups and activities. She had several phone calls with family members and friends. We initiated a trial of fluoxetine 10 mg daily in the hospital. We reviewed the uses, side effects, and time course, and the patient gave informed consent. She tolerated it well. She understands we want to get up to 20 mg daily in the next few days. Family meeting took place this morning and went well. She has been without suicidal thoughts throughout her stay but she admits that it she is somewhat puzzled as to the impulsive nature of her suicide attempt. Physically, she has recovered well. The pharmacy help to manage her blood sugars while she was in the hospital. We have set her up with some outpatient services through [facility] and when I saw her last she was speaking with them on the phone for the intake. We also stopped her levothyroxine. She said that she had been off of this for more than a year and her TSH was completely normal. Day of Discharge Assessment Today the patient voices readiness for discharge. They note improvement in mood and deny thoughts to harm self or others. Thoughts remain organized and they are improved from admission. There is no evidence of psychosis. They agree to take mediations as prescribed and keep follow-up appointments. They are stable for discharge to outpatient level of care. Transition of Care Transition Of Care Record: was reviewed with the patient Advance Directives Advance Directives Information Provided: Yes Advance Directives: No Mental Health Advance Directive: No Advance Directives on File: No Living Will: No Power of Chief Of Vital Statistics: No Advance Directives Reason:: Declines as Mental Health Visit. Suicide Risk Level Suicide Risk Level Comments: Patient has been denying suicidal ideation since she admitted to our psychiatric unit. She is thinking of the future and is much brighter in her affect. She is interested in outpatient therapy as well so that she can learn better ways to deal with some of her stressors including her interactions with family and friends. Risk Factors Assessment Male: No : No Do You Have Access To A Gun?: No Health Problems: Yes Mental Health Diagnoses: Yes Previous Attempt: Yes Protective Factors Assessment Supportive Family: Yes Discharge Data Lab Results 05/09/23 05/10/23 05/10/23 21:47 01:01 03:59 POC Glucose 197 H 103 H 128 H 05/10/23 05/10/23 05/10/23 17:03 20:35 21:28 POC Glucose 177 H 90 72 05/10/23 05/11/23 05/11/23 23:59 12:36 17:23 POC Glucose 70 169 H 68 L* 05/11/23 05/11/23 05/12/23 18:19 22:16 08:22 POC Glucose 194 H 211 H 129 H 05/12/23 05/12/23 05/12/23 12:28 17:11 21:08 POC Glucose 133 H 131 H 220 H 05/13/23 08:30 POC Glucose 147 H Hospital Course (1) Depressive disorder: (2) Diabetes type 1, uncontrolled: (3) Hypothyroidism: Plan 05/12/2023: Patient is going to discharge home today. She will be meeting with University on Saturday to discuss her transition back into school and finishing up her work for the semester. Today I spent 43 minutes on the case including reviewing the chart, meeting with the patient, nursing report, multidisciplinary treatment team meeting, discharge orders, and documentation. 05/12/2023: We will continue with our current level of observation and precautions. Today, we will start fluoxetine 10 mg daily with a plan to try to get to 20 mg daily by discharge. I reviewed the uses, side effects, and time course and the patient gave informed consent. We also spent some time talking about coping skills and I gave her an exercise to try to come up with a long list of coping skills for her various situations that she is commonly in. For example, at 2 in the morning, going for a walk is not a good coping skill. She will come up with better once for that time. Today I also used a positive psychology approach and we talked about some strategies she can use to try to help improve her mood by focusing on the good things going on around her rather than just the negative. She is going to start listing "3 good things" that occur daily as well as performing an "act of kindness" daily and log of those things in her journal. We will try to set up a family meeting tomorrow or Saturday. 05/11/2023: I encouraged the patient to take part in our therapeutic milieu, attend groups and activities, try not to isolate, and maintain good hygiene. We talked about the possibility of starting an antidepressant. She is going to contact her sister and aunt who have both been on antidepressants to see what they were and how it affected them. She knows that her mother is encouraging her to start an antidepressant as well. This was a very serious suicide attempt and I want to make sure that she is going to be okay before we discharge her. 05/10/2023: The patient was admitted to the [facility] ([facility] unit) on q15 min checks (behavioral with suicide precautions) for safety. The patient will participate in group, recreational, and milieu therapies and will be offered additional individual and family sessions as clinically appropriate. Fluconazole X1 for positive apollo swab from ED. Glycemic management per pharmacy. Mental Health & Subst Abuse Tx Psychiatrist Name of Psychiatrist: RENALDO Jaime Psychiatrist's Therapist Name of Therapist: RENALDO Jaime Therapist's Station Engineer Main Line Name of Station Engineer Main Line: Student Care and Advocacy Phone Number for Station Engineer Main Line: [phone] Date of Appointment with Station Engineer Main Line: 05/17/23 Time of Appointment with Station Engineer Main Line: 1:15 PM Case Management Appointment Comment: Please check U email for Zoom link. Post Discharge Appointments Primary Care Physician Name Of Family Doctor/PCP: [facility] Primary Care Date of Future Appointment with PCP: 05/16/2023 Time of Appointment with PCP: 8:20AM Provider Appointment Comment: [facility] Discharge Plan Discharge Items Patient Disposition: Home - Self-Care Reason For Visit: DEPRESSIVE DISORDER Discharge Diagnosis: Depressive Disorder, unspecified Activity: Resume your previous activity Non-emergency contact: Primary Care Provider, Psychiatrist and Therapist Call non-emergency contact if: you have any medication questions and your symptoms worsen Follow-up/Referrals: RYLEY DC [Other] Diet: Carb Count or DM1 Addtl Attending Provider Instructions: SPECIAL CARE INSTRUCTIONS: 1. Follow through with your scheduled aftercare appointments. If unable to keep an appointment, please call to reschedule. 2. Take your medication only as prescribed. Medication should not be changed or stopped without the approval of your doctor. In the event of worsening symptoms or concerns about side effects, contact your doctor immediately. 3. Utilize new healthy coping skills, anger management skills, and stress management skills learned during your hospitalization. Journal feelings and process them with a support person. Identify stressors or situations that may result in relapse, deterioration or inappropriate behaviors and develop a plan to deal with those issues. 4. If your coping skills are ineffective and you are in crisis, contact your outpatient providers for direction. If unable to reach your providers, please call the [facility] CRISIS LINE AT , go to the [facility] walk-in center at [address], [place], or go to the closest Emergency Room. 5. Avoid alcohol and un-prescribed drugs. 6. You have been provided with the Mental Health Advance Directives Pamphlet for your review. 7. Your condition is stable for discharge to outpatient level of care, but recovery is an ongoing process. Ifthoughts to harm yourself or others return, follow the safety plan developed during your stay. Planning for a safe return home includes securing weapons. Our treatment team recommends weaponsbe removed from the home until your outpatient provider reassesses your progress. In rare cases where the items themselvescannot be removed, guns and ammunitionshould be secured separatelyand keys stored by a reliable personoutside of the home. If you were admitted on an involuntary commitment, the police or other legal authorities may be involved in this process. AFTERCARE APPOINTMENTS: * Please call your insurance company prior to your scheduled appointment to confirm your aftercare providers are covered. Take your insurance information to your appointments. WHO TO CALL AND WHEN: Medical Emergencies: For questions or emergencies related to your hospital stay, please contact the Inpatient Behavioral Health Unit at [phone]. A pack worker supervisor is on-call 10/09 for the Behavioral Health Unit for emergencies At any time you feel your situation is an emergency, you may also call 911 immediately. Pending Studies at Discharge: No Stand-Alone Forms: My [facility], Smoking Cessation Medications and DC Order Prescriptions: New fluoxetine 10 mg capsule 10 mg PO DAILY Qty: 56 0RF Rx Instructions: 10 mg po daily x4 days, then 20 mg daily. (DME) pen needle, diabetic 32 gauge x 5/32" needle See Rx Instructions .Route Qty: 100 0RF Rx Instructions: As directed (DME) Contour Test Strips Strip See Rx Instructions .Route Qty: 100 0RF Rx Instructions: Test blood sugar 2 times daily Continued cholecalciferol (vitamin D3) 0 ea PO DAILY Rx Instructions: unable to verify with pharmacy 05/07/23 insulin lispro [Humalog KwikPen Insulin] 100 unit/mL insulin pen 20 unit subcut TID MDD 60 units Rx Instructions: inject 40 units in divided doses daily per pharmacy insulin glargine [Lantus Solostar U-100 Insulin] 100 unit/mL (3 mL) insulin pen 40 unit subcut HS Baqsimi 3 mg/actuation spray,non-aerosol 0 mg intranasal ONCE Rx Instructions: unable to verify with [facility] pharmacy 05/07/23 Discontinued (DME) Contour Next Test Strips Strip See Rx Instructions .Route Rx Instructions: Test blood sugar two times daily insulin aspart (niacinamide) [Fiasp FlexTouch U-100 Insulin] 100 unit/mL (3 mL) insulin pen 0 unit subcut UNKNOWN 0RF Rx Instructions: Not on file with [facility] pharmacy levothyroxine 50 mcg tablet 50 mcg PO DAILY Qty: 30 5RF Rx Instructions: hasnt filled with [facility] pharmacy since 10/31/2019 (DME) pen needle, diabetic [BD Ultra-Fine Olya Pen Needle] 32 gauge x 5/32" needle See Rx Instructions .Route Qty: 400 3RF Rx Instructions: Inject insulin four times daily Discharge Orders: Discharge Order (Routine); Ordered 05/13/23 Ordered By: Jacob Naranjo Jr Admission Data Admit Date/Time: 05/09/23 19:53 Attending Provider: Jacob Naranjo Jr Admit Provider: Liliana Smart Primary Care Provider: RYLEY DC Other Interventions: PSY Interdisciplinary Discharge Planning Last Done: 05/13/23 09:46 Coding Level of Care Code 89530 D/C day mgmt > 30 min Diagnoses Depressive disorder F32.A Diabetes type 1, uncontrolled E10.649 Coma presence: unspecified whether coma present Glycemic state: with hypoglycemia Hypothyroidism, unspecified type E03.9 Hypothyroidism type: unspecified
== END 2023-05-13 13:35 | disposition home or self-care (01) | DRG 881 ==
LOC: 3S 19:53 → SUATTDRO 19:53